=== PATIENT | male | born 1950 | race Caucasian/White ===

== ENCOUNTER 2018-03-10 10:49 | Observation (INO) ==
[2018-03-10 11:44] LABS: Baso # (Auto) 0.1 th/mm3 (0.0-0.2); Baso % (Auto) 1.1 % (0.0-2.0); Eos # (Auto) 0.1 th/mm3 (0.0-0.4); Eos % (Auto) 1.6 % (0.0-4.0); Hematocrit 42.8 % (39.0-51.0); Hemoglobin 14.8 gm/dL (13.0-17.0); Lymph # (Auto) 1.5 th/mm3 (1.0-4.8); Lymph % (Auto) 21.7 % (9.0-44.0); Mean Corpuscular HGB Conc 34.6 % (32.0-36.0); Mean Corpuscular Hemoglobin 29.9 pg (27.0-34.0); Mean Corpuscular Volume 86.5 fL (80.0-100.0); Mean Platelet Volume 7.8 fL (7.0-11.0); Mono # (Auto) 0.5 th/mm3 (0.0-0.9); Mono % (Auto) 7.2 % (0.0-8.0); Neut # (Auto) 4.7 th/mm3 (1.8-7.7); Neut % (Auto) 68.4 % (16.0-70.0); Platelet Count 278 th/mm3 (150-450); Red Blood Count 4.95 mil/mm3 (4.50-5.90); Red Cell Distribution Width 13.1 % (11.6-17.2); White Blood Count 6.8 th/mm3 (4.0-11.0)
--- NOTE | 2018-03-10 11:59 | ED ---
HPI General Chief complaint: Psychiatric Symptoms Stated complaint: Psych eval/EWPD Time Seen by Provider: 03/10/18 13:30 Limitations: altered mental status History of Present Illness HPI narrative: Patient is Gabriele Jarrett date of 1950 registered as eTsfaye Joaquin as he could not be properly identified. Presents emergency department under [employer] act, according the [employer] act "Mr. Ventura is suffered from dementia for approximately 10 years and cannot care for himself. Ms. Mcdermott has had trouble keeping Mr. Jarrett in proper care due to Mr. Davies and continually running away from home. Due to this Mr. Ventura is at risk of injury or worse without proper care."Attempted to get history from this patient is very difficult and near impossible as he has inappropriate answers to questions. For example if you ask him what year it is he states no thank you. Related Data Home Medications Medication Instructions Recorded Confirmed aspirin [Aspir-81] 81 mg PO DAILY 03/10/18 03/10/18 donepezil 10 mg PO DAILY 03/10/18 03/10/18 ziprasidone HCl 20 mg PO BID 03/10/18 03/10/18 Allergies Allergy/AdvReac Type Severity Reaction Status Date / Time No Known Allergies Allergy Unverified 03/10/18 11:17 Review of Systems ROS Unobtainable ROS Unobtainable: unobtainable due to mental status PMFSH Social History Social History Recent Travel in [facility] within the Last 8 Weeks: No Recent Out of Country Travel within the Last 8 Weeks: No Exam Narrative Exam Narrative: GENERAL: Well-developed well-nourished disheveled male in no obvious distress. Appears nontoxic. Pleasantly confused peer SKIN: Focused skin assessment warm/dry. No obvious evidence of trauma on his person. HEAD: Atraumatic. Normocephalic. EYES: Pupils equal and round. No scleral icterus. No injection or drainage. ENT: No nasal bleeding or discharge. Mucous membranes pink and moist. NECK: Trachea midline. No JVD. CARDIOVASCULAR: Regular rate and rhythm. No murmur appreciated. RESPIRATORY: No accessory muscle use. Clear to auscultation. Breath sounds equal bilaterally. GASTROINTESTINAL: Abdomen soft, non-tender, nondistended. Hepatic and splenic margins not palpable. MUSCULOSKELETAL: No obvious deformities. No clubbing. No cyanosis. No edema. NEUROLOGICAL: Alert and awake and oriented to self only. He follows commands in all 4 extremities, no obvious cranial nerve deficits. PSYCHIATRIC: Content affect, otherwise unable to assess him psychiatrically. Course Initial Documented Vital Signs Temperature 98.0 F 03/10/18 11:07 Pulse Rate 82 03/10/18 11:07 Blood Pressure 162/89 H 03/10/18 11:07 Pulse Oximetry 100 03/10/18 11:07 Last Documented Vital Signs Temperature 98.0 F 03/10/18 11:07 Pulse Rate 82 03/10/18 11:07 Blood Pressure 162/89 H 03/10/18 11:07 Pulse Oximetry 100 03/10/18 11:07 Medical Decision Making MDM Narrative Medical decision making narrative: Involving case management early in this patient, his has been contacted and she is having trouble controlling the patient's behaviors at home, she also apparently has been trying to place the patient into jail facility out of [place]. Case management informs that likely nothing will happen until Monday, awaiting UA patient discussed with Dasia Chery RN for psychiatry, will be screened seen by ACCREDITED LEGAL SECRETARY, will continue to follow the patient. 1620 I reevaluated the patient is Huerta acted been lifted, per our certified medical transcriptionist patient will be held in the emergency department for at least 24 hours before being a social admit, that he has no medical admission diagnosis at this time. Have ordered his medications and a diet for him. We will discussed with the oncoming provider at 1700 shift change.. Medical Screen Exam Complete: Yes Emergency Medical Condition: Yes Lab Data Result diagrams: 03/10/18 11:13 03/10/18 11:13 Lab Results 03/10/18 03/10/18 Range/Units 11:13 11:13 WBC 6.8 (4.0-11.0) th/mm3 RBC 4.95 (4.50-5.90) mil/mm3 Hgb 14.8 (13.0-17.0) gm/dL Hct 42.8 (39.0-51.0) % MCV 86.5 (80.0-100.0) fL MCH 29.9 (27.0-34.0) pg MCHC 34.6 (32.0-36.0) % RDW 13.1 (11.6-17.2) % Plt Count 278 (150-450) th/mm3 MPV 7.8 (7.0-11.0) fL Neut % (Auto) 68.4 (16.0-70.0) % Lymph % (Auto) 21.7 (9.0-44.0) % [place] % (Auto) 7.2 (0.0-8.0) % Eos % (Auto) 1.6 (0.0-4.0) % Baso % (Auto) 1.1 (0.0-2.0) % Neut # (Auto) 4.7 (1.8-7.7) th/mm3 Lymph # (Auto) 1.5 (1.0-4.8) th/mm3 [place] # (Auto) 0.5 (0.0-0.9) th/mm3 Eos # (Auto) 0.1 (0.0-0.4) th/mm3 Baso # (Auto) 0.1 (0.0-0.2) th/mm3 WBC Differential . Differential Comment Auto diff final Sodium 139 (136-145) meq/L Potassium 3.7 (3.5-5.1) meq/L Chloride 105 (98-107) meq/L Carbon Dioxide 29.1 (21.0-32.0) meq/L Anion Gap 5 (5-15) meq/L BUN 10 (7-18) mg/dL Creatinine 1.18 (0.60-1.30) mg/dL Estimated GFR 53 L (>89) mL/min Random Glucose 95 (74-106) mg/dL Calcium 8.7 (8.5-10.1) mg/dL Total Bilirubin 1.0 (0.2-1.0) mg/dL AST 16 (15-37) U/L ALT 23 (12-78) U/L Alkaline Phosphatase 72 (45-117) U/L Total Protein 7.6 (6.4-8.2) g/dL Albumin 3.9 (3.4-5.0) g/dL TSH 1.180 (0.358-3.740) uIU/mL Acetaminophen Less than 2.0 L (10.0-30.0) mcg/mL Serum Alcohol Less than 3 (0-5) mg/dL Discharge Plan Discharge Disposition Patient Disposition: 30 Still Patient Discharge Condition Condition: Stable Discharge Details Diagnosis: Dementia with behavioral problem Physicians Team ED Provider: Pritesh Prajapati Primary Care Provider: UNKNOWN, Rxs /Orders / Referrals /Forms Prescriptions: No Action donepezil 10 mg Tablet 10 mg PO DAILY RF: 0 aspirin [Aspir-81] 81 mg Tablet,Delayed Release (Dr/Ec) 81 mg PO DAILY RF: 0 ziprasidone HCl 20 mg Capsule 20 mg PO BID RF: 0 Discharge Interventions Interventions: Discharge Planning - Case Management Last Done: 03/10/18 12:14 Status ED Status: Medically Cleared
[2018-03-10 12:00] LABS: Anion Gap 5 meq/L (5-15)
[2018-03-10 12:30] LABS: Alanine Aminotransferase 23 U/L (12-78); Albumin 3.9 g/dL (3.4-5.0); Alkaline Phosphatase 72 U/L (45-117); Aspartate Aminotransferase 16 U/L (15-37); Blood Urea Nitrogen 10 mg/dL (7-18); Calcium 8.7 mg/dL (8.5-10.1); Carbon Dioxide 29.1 meq/L (21.0-32.0); Chloride 105 meq/L (98-107); Glomerular Filtration Rate 53 mL/min (>89); Glucose,Random 95 mg/dL (74-106); Potassium 3.7 meq/L (3.5-5.1); Sodium 139 meq/L (136-145); Total Protein 7.6 g/dL (6.4-8.2)
--- NOTE | 2018-03-10 15:52 | ED ---
HPI - Psych - General Source: patient, family Mode of arrival: other Limitations: language barrier, other - History of Present Illness MD complaint: other Onset (ago): month(s) Duration: constant History of same: Yes Relieving factors: none Exacerbating factors: none Context: other Associated psychiatric symptoms: none, visual hallucinations Associated symptoms: denies other symptoms Treatments prior to arrival: none If self harm: other (Unable to assess) - General Chief Complaint: Psychiatric Symptoms Stated Complaint: Psych eval/EWPD Time Seen by Provider: 03/10/18 13:30 - History of Present Illness HPI Narrative: History of Present Illness HPI narrative: Patient is Gabriele Jarrett date of 1950 registered as Tesfaye Joaquin as he could not be properly identified. Presents emergency department under [employer] act. The report states "Mr. Ventura is suffered from dementia for approximately 10 years and cannot care for himself. Ms. Mcdermott has had trouble keeping Mr. Jarrett in proper care due to Mr. Davies continually running away from home. Due to this Mr. Ventura is at risk of injury or worse without proper care. Patient is seen in Main ED. Dr. Prajapati has asked for us to evaluate him to make a determination on the Huerta act. He has been unable to obtain any clinical information from the patient due to his degree of cognitive impairment. Patient is sitting in hospital stretcher. When he is approached he is able to tell me his name is Gabriele but he is not able to tell me what his last name. He smiles and laughs frequently and does not appear to be in distress. When asked what his last name he states "that is alright". Patient is unable to tell me what kind of place this is. He exhibits difficulty with word finding, difficulty with word comprehension, somatic paraphasia, and decreased verbal fluency. He does not appear to be responding to internal stimuli at this time. Therefore the psychiatric review of system and other clinical information is on unavailable. Telephone call to his spouse Ratna at [phone]. She informs me that he was Dx with Alzheimer in 2007. Being followed by [place] system and sees Dr. Bang as well as Dr. Aranda. She has been filling out paperwork for placement in [place]. He has episodes of swearing, yelling and screaming obscenities in front of children, hits himself in the head, believes that people are trying to hurt him. His medications have recently been changed and was started on Geodon 20 mg in an attempt to control behaviors associated with his dementia including hallucinations.. She states she is unable to care for him due to him continuing to run away from the home. (Radha Zhao) - Related Data Home Medications Medication Instructions Recorded Confirmed aspirin [Aspir-81] 81 mg PO DAILY 03/10/18 03/10/18 donepezil 10 mg PO DAILY 03/10/18 03/10/18 ziprasidone HCl 20 mg PO BID 03/10/18 03/10/18 Allergies Allergy/AdvReac Type Severity Reaction Status Date / Time No Known Allergies Allergy Unverified 03/10/18 11:17 PMF - History History Provided By: Patient - Travel History Recent Travel in the [facility] Within the Last 8 Weeks: No Recent Travel Out of the Country Within the Last 8 Weeks: No Psychiatric History - Psychiatric History Patient unable to provide but (Radha Zhao) Physical Exam - General Limitations: altered mental status Mental Status Examination Consciousness: Alert Orientation: Person Motor Activity: Other (Remained in bed) Speech: Other (Significant for somatic paraphasia, decreased verbal fluency, difficult goal with word finding) Language: Other Fund of Knowledge: Poor Attention and Concentration: Inadequate Memory: Impaired Mood: Appropriate Affect: Other (Smiles frequently) Thought Process & Associations: Disorganized Thought Content: Other (Decrease) Hallucination Type: None (Does not appear to be responding to internal stimuli at this time) Delusion Type: None Suicidal Ideation: No Suicidal Plan: No Suicidal Intention: No Homicidal Plan: No Homicidal Intention: No Insight: Poor Judgment: Poor Initial Documented Vital Signs Temperature 98.0 F 03/10/18 11:07 Pulse Rate 82 03/10/18 11:07 Blood Pressure 162/89 H 03/10/18 11:07 Pulse Oximetry 100 03/10/18 11:07 Last Documented Vital Signs Temperature 98.0 F 03/10/18 11:07 Pulse Rate 82 03/10/18 11:07 Blood Pressure 162/89 H 03/10/18 11:07 Pulse Oximetry 100 03/10/18 11:07 MDM - Psych - Diagnosis (1) Major neurocognitive disorder due to Alzheimer's disease, possible Status: Acute - Lab Data Result diagrams: 03/10/18 11:13 03/10/18 11:13 - [facility] Narrative Medical decision making narrative: At this patient with a diagnosis of major neurocognitive disorder secondary to Alzheimer's disease who is under a Huerta act due to his inability to care for him at the home. She reports that he has been escaping from the home, has been using profane language in front of small children, has been hitting himself , has been more defiant with her. This patient does not meet criteria to remain under the Huerta act as dementia is not a criteria under the Huerta act law. The family has begun to make arrangements for him to be placed at a facility but the does not feel safe if she were to bring him home tonight. I have conveyed to her that she does not meet criteria for inpatient psychiatric treatment. I have discussed this case with Dr. Prajapati who will be contacting hospitalist for possible admission to observation. The Huerta act is lifted at this time. (Radha Zhao) - Lab Data Lab Results 03/10/18 03/10/18 Range/Units 11:13 11:13 WBC 6.8 (4.0-11.0) th/mm3 RBC 4.95 (4.50-5.90) mil/mm3 Hgb 14.8 (13.0-17.0) gm/dL Hct 42.8 (39.0-51.0) % MCV 86.5 (80.0-100.0) fL MCH 29.9 (27.0-34.0) pg MCHC 34.6 (32.0-36.0) % RDW 13.1 (11.6-17.2) % Plt Count 278 (150-450) th/mm3 MPV 7.8 (7.0-11.0) fL Neut % (Auto) 68.4 (16.0-70.0) % Lymph % (Auto) 21.7 (9.0-44.0) % [place] % (Auto) 7.2 (0.0-8.0) % Eos % (Auto) 1.6 (0.0-4.0) % Baso % (Auto) 1.1 (0.0-2.0) % Neut # (Auto) 4.7 (1.8-7.7) th/mm3 Lymph # (Auto) 1.5 (1.0-4.8) th/mm3 [place] # (Auto) 0.5 (0.0-0.9) th/mm3 Eos # (Auto) 0.1 (0.0-0.4) th/mm3 Baso # (Auto) 0.1 (0.0-0.2) th/mm3 WBC Differential . Differential Comment Auto diff final Sodium 139 (136-145) meq/L Potassium 3.7 (3.5-5.1) meq/L Chloride 105 (98-107) meq/L Carbon Dioxide 29.1 (21.0-32.0) meq/L Anion Gap 5 (5-15) meq/L BUN 10 (7-18) mg/dL Creatinine 1.18 (0.60-1.30) mg/dL Estimated GFR 53 L (>89) mL/min Random Glucose 95 (74-106) mg/dL Calcium 8.7 (8.5-10.1) mg/dL Total Bilirubin 1.0 (0.2-1.0) mg/dL AST 16 (15-37) U/L ALT 23 (12-78) U/L Alkaline Phosphatase 72 (45-117) U/L Total Protein 7.6 (6.4-8.2) g/dL Albumin 3.9 (3.4-5.0) g/dL TSH 1.180 (0.358-3.740) uIU/mL Acetaminophen Less than 2.0 L (10.0-30.0) mcg/mL Serum Alcohol Less than 3 (0-5) mg/dL
--- NOTE | 2018-03-11 10:03 | P.CON ---
History of Present Illness Service: Hospitalists Consult date: 03/11/18 Reason for Consult: placement Primary Care Provider: UNKNOWN Chief Complaint: dementia, unsafe discharge History of Present Illness: 67-year-old male Gabriele Mcdermott 54, brought to the emergency department under Huerta act which stated "Mr. Mcdermott has suffered from dementia for approximately 10 years and cannot care for himself. Mrs. Mcdermott has had trouble keeping Mr. Mcdermott in proper care due to Mr. Mcdermott continually running away from home. Due to this Mr. Mcdermott is at risk of injury or worse without proper care." The patient is seen ambulating his room in the ER. He has difficulty even telling me his name, and does not oriented to place or time. He does not answer questions appropriately. Difficulty obtaining any reliable history, therefore history supplemented from EMR. From report, the patient was brought in by his who has been working on obtaining secure placement for the patient as she can no longer care for him. Case management has been involved. Review of Systems unobtainable due to mental condition, unobtainable due to mental status PMFSH - History History Provided By: Patient - Medical / Surgical Hx Neg / Unobtainable Medical Problems Denied: Unable to Obtain Surgical History: Unable to Obtain - Medical History Medical History: Medical History (Last Updated 03/11/18 @ 13:32 by Rosita Kim) Dementia - Social History I have reviewed the patient's Social History: Yes - Travel History Recent Travel in the [place] Within the Last 8 Weeks: No Recent Travel Out of the Country Within the Last 8 Weeks: No Medications and Allergies Active Medications: Active Medications Aspirin (Aspirin Chew) 81 mg PO DAILY [facility] Last Admin: 03/11/18 08:26 Dose: 81 mg Donepezil HCl (Aricept) 10 mg PO DAILY [facility] Last Admin: 03/11/18 08:26 Dose: 10 mg Ziprasidone (Geodon) 20 mg PO BID [facility] Last Admin: 03/11/18 08:27 Dose: 20 mg Allergies Allergy/AdvReac Type Severity Reaction Status Date / Time No Known Allergies Allergy Unverified 03/10/18 11:17 Home Medications Medication Instructions Recorded Confirmed Type aspirin [Aspir-81] 81 mg PO DAILY 03/10/18 03/10/18 History donepezil 10 mg PO DAILY 03/10/18 03/10/18 History ziprasidone HCl 20 mg PO BID 03/10/18 03/10/18 History Physical Exam Vital signs: Vital Signs 03/10/18 11:07 03/10/18 19:00 03/11/18 04:27 Temperature 98.0 F Pulse Rate 82 75 Respiratory Rate 16 14 Blood Pressure 162/89 H 176/86 H Pulse Oximetry 100 96 Intake & Output 03/10/18 03/11/18 03/11/18 18:59 06:59 18:59 Weight 77.111 kg 65.2 kg Other: Weight On Admission 65.2 kg Narrative: GENERAL: Tall thin pleasantly confused elderly male patient in [facility], ambulating his room. SKIN: Warm and dry. No rash. HEENT: Normocephalic. Atraumatic. Pupils equal and round. Mucous membranes pink and moist. NECK: Supple. Trachea midline. CARDIOVASCULAR: Regular rate and rhythm. No murmur appreciated. RESPIRATORY: No accessory muscle use. Clear to auscultation. Breath sounds equal bilaterally. GASTROINTESTINAL: Abdomen soft, non-tender, nondistended. Normoactive bowel sounds x4. MUSCULOSKELETAL: No obvious deformities. Extremities without clubbing, cyanosis , or edema. NEUROLOGICAL: Awake and alert. No obvious cranial nerve deficits. Motor grossly within normal limits. Moving all extremities spontaneously. Normal speech. PSYCHIATRIC: Pleasantly confused; insight and judgment poor. Assessment and Plan - Plan 67-year-old male Gabriele Mcdermott [birth year], brought to the emergency department under Huerta act for inability to care for self with advanced dementia. He is bedded outpatient, being kept in hospital for social reasons only. Dementia, inability to care for self: Patient is a social admit for placement. Patient's can no longer care for the patient. -Initially presented under Huerta act, no lifted by psych, continued on patient's Geodon 20 mg bid -Continue patient's Aricept -Consult case management to assist with discharge planning Hypertension: BP elevated while in the ER, not on meds -continue to monitor BP, add antihypertensives as needed DVT prophylaxis: Patient is ambulatory Discharge Planning: Discharge pending safe discharge arrangements by case management and patient's .
--- NOTE | 2018-03-13 16:17 | P.PN ---
Subjective Interval history: Patient seen as bedded outpatient. Severely demented. Does not appear to be in distress. Nursing and sitter report no adverse events. Waiting for placement. Physical Exam Vital signs: Vital Signs 03/12/18 20:00 03/13/18 07:17 03/13/18 11:59 Temperature 98.4 F 98.6 F Pulse Rate 95 H 92 H 80 Respiratory Rate 19 18 20 Blood Pressure 123/78 131/91 H 107/80 Pulse Oximetry 83 L 99 99 03/13/18 16:08 Temperature 98.5 F Pulse Rate 84 Respiratory Rate 20 Blood Pressure 120/82 Pulse Oximetry 90 L Intake & Output 03/12/18 03/13/18 03/13/18 18:59 06:59 18:59 Other: # Voids 1 Results - Labs CBC & Chem 7: 03/10/18 11:13 03/10/18 11:13
[2018-03-14] MEDS ORDERED: Bisacodyl 10 MG Supp RECTAL PRN (13:22)
[2018-03-14] MEDS ORDERED: LORazepam 0.5 MG Tablet PO PRN (13:24)
[2018-03-14 14:39] LABS: Baso # (Auto) 0.1 th/mm3 (0.0-0.2); Baso % (Auto) 0.6 % (0.0-2.0); Eos # (Auto) 0.1 th/mm3 (0.0-0.4); Eos % (Auto) 0.6 % (0.0-4.0); Hematocrit 44.7 % (39.0-51.0); Hemoglobin 15.3 gm/dL (13.0-17.0); Lymph # (Auto) 1.6 th/mm3 (1.0-4.8); Lymph % (Auto) 15.9 % (9.0-44.0); Mean Corpuscular HGB Conc 34.3 % (32.0-36.0); Mean Corpuscular Hemoglobin 29.9 pg (27.0-34.0); Mean Corpuscular Volume 87.2 fL (80.0-100.0); Mean Platelet Volume 7.5 fL (7.0-11.0); Mono # (Auto) 0.8 th/mm3 (0.0-0.9); Mono % (Auto) 8.1 % (0.0-8.0); Neut # (Auto) 7.7 th/mm3 (1.8-7.7); Neut % (Auto) 74.8 % (16.0-70.0); Platelet Count 263 th/mm3 (150-450); Red Blood Count 5.12 mil/mm3 (4.50-5.90); Red Cell Distribution Width 13.6 % (11.6-17.2); White Blood Count 10.3 th/mm3 (4.0-11.0)
[2018-03-14 14:54] LABS: Alanine Aminotransferase 19 U/L (12-78); Albumin 3.7 g/dL (3.4-5.0); Anion Gap 8 meq/L (5-15); Aspartate Aminotransferase 20 U/L (15-37); Blood Urea Nitrogen 17 mg/dL (7-18); Carbon Dioxide 28.8 meq/L (21.0-32.0); Chloride 105 meq/L (98-107); Glomerular Filtration Rate 72 mL/min (>89); Glucose,Random 92 mg/dL (74-106); Potassium 4.3 meq/L (3.5-5.1); Sodium 142 meq/L (136-145)
[2018-03-14 14:57] LABS: Alkaline Phosphatase 69 U/L (45-117); Total Protein 7.3 g/dL (6.4-8.2)
[2018-03-14] MEDS: QUEtiapine 100 MG Tablet PO SCH (15:44)
--- NOTE | 2018-03-14 15:50 | P.PN ---
Subjective Interval history: Patient is seen pacing around room. He has severe chronic dementia/Alzheimer's however he appears increasingly agitated and more confused than his apparent baseline. Nursing reports that he has been very aggressive overnight. Physical Exam Vital signs: Vital Signs 03/13/18 16:08 03/13/18 20:00 03/14/18 00:00 Temperature 98.5 F 97.6 F 97.6 F Pulse Rate 84 70 82 Respiratory Rate 20 18 16 Blood Pressure 120/82 127/93 H 118/76 Pulse Oximetry 90 L 97 92 L 03/14/18 07:56 Temperature 97.8 F Pulse Rate 112 H Respiratory Rate 18 Blood Pressure 162/97 H Pulse Oximetry Narrative: GENERAL: Well-nourished, well-developed adult male in no obvious distress. SKIN: Warm and dry. HEAD: Atraumatic. Normocephalic. CARDIOVASCULAR: Regular rate and rhythm. RESPIRATORY: No accessory muscle use. Clear to auscultation. Breath sounds equal bilaterally. GASTROINTESTINAL: Abdomen soft, non-tender, non-distended. Positive bowel sounds. MUSCULOSKELETAL: Extremities without clubbing, cyanosis, or edema. No obvious deformities. NEUROLOGICAL: Awake and alert. No obvious cranial nerve deficits. Motor grossly within normal limits. Normal speech. PSYCHIATRIC: Severe dementia. Unreliable historian Results - Labs CBC & Chem 7: 03/14/18 14:10 03/14/18 14:10 Laboratory Results - last 24 hr 03/14/18 03/14/18 14:10 14:10 WBC 10.3 RBC 5.12 Hgb 15.3 Hct 44.7 MCV 87.2 MCH 29.9 MCHC 34.3 RDW 13.6 Plt Count 263 MPV 7.5 Neut % (Auto) 74.8 H Lymph % (Auto) 15.9 [place] % (Auto) 8.1 H Eos % (Auto) 0.6 Baso % (Auto) 0.6 Neut # (Auto) 7.7 Lymph # (Auto) 1.6 [place] # (Auto) 0.8 Eos # (Auto) 0.1 Baso # (Auto) 0.1 WBC Differential . Differential Comment Auto diff final Sodium 142 Potassium 4.3 Chloride 105 Carbon Dioxide 28.8 Anion Gap 8 BUN 17 Creatinine 1.03 Estimated GFR 72 L Random Glucose 92 Calcium 9.0 Total Bilirubin 1.2 H AST 20 ALT 19 Alkaline Phosphatase 69 Total Protein 7.3 Albumin 3.7 Assessment and Plan - Plan Patient is a 67-year-old male with severe Alzheimer's who was initially Huerta acted due to his 's inability to care for him in the home. Initially admitted as bedded outpatient however he became increasingly aggressive and agitated so will admit to observation. Alzheimer's/dementia -Change Geodon to Haldol. Continue other medications Increased aggression/delirium -Evaluate for UTI or lab abnormality -Consider sundowners-add Seroquel Discharge planning: Will need SNF
[2018-03-14 17:02] LABS: Bilirubin,Urine Negative (Negative); Clarity,Urine Hazy (Clear); Color,Urine Amber (Yellw/Straw); Glucose,Urine (UA) Negative (Negative); Hyaline Casts,Urine 4 /lpf (0-3); Leukocyte Esterase,Urine Negative (Negative); Mucus,Urine Many /lpf (Occasional); Nitrite,Urine Negative (Negative); Specific Gravity,Urine 1.027 (1.002-1.035); Squamous Epithelial Cell,Urine <1 /hpf (0-5); Urobilinogen,Urine 4 or Greater mg/dL (Less than 2)
[2018-03-14] MEDS ORDERED: LORazepam 1 MG Tablet PO ONE (17:33)
[2018-03-14] MEDS ORDERED: QUEtiapine 100 MG Tablet PO SCH (21:00)
[2018-03-14] MEDS: Senna/Docusate Sodium 8.6/50 MG Tablet PO SCH (22:55)
[2018-03-15] MEDS ORDERED: Haloperidol 1 MG Tablet PO PRN (07:30)
[2018-03-15] MEDS: QUEtiapine 100 MG Tablet PO SCH (09:42)
[2018-03-15] MEDS: Senna/Docusate Sodium 8.6/50 MG Tablet PO SCH ×2 (09:43→20:45)
--- NOTE | 2018-03-15 13:20 | P.PN ---
Subjective Interval history: Patient appears improved with changes to medications. Lab work on concerning. Nursing reports that patient was calm overnight with no aggressive behaviors. Physical Exam Vital signs: Vital Signs 03/14/18 15:40 03/14/18 19:27 03/14/18 20:00 Temperature 97.6 F 97.7 F Pulse Rate 117 H 100 H Respiratory Rate 16 15 19 Blood Pressure 107/83 114/79 Pulse Oximetry 94 L 100 03/14/18 23:38 03/15/18 04:00 03/15/18 08:00 Temperature 97.8 F 97.6 F Pulse Rate 80 68 Respiratory Rate 18 20 20 Blood Pressure 138/75 133/81 Pulse Oximetry 100 100 Narrative: GENERAL: Well-nourished, well-developed adult male in no obvious distress. SKIN: Warm and dry. HEAD: Atraumatic. Normocephalic. CARDIOVASCULAR: Regular rate and rhythm. RESPIRATORY: No accessory muscle use. Clear to auscultation. Breath sounds equal bilaterally. GASTROINTESTINAL: Abdomen soft, non-tender, non-distended. Positive bowel sounds. MUSCULOSKELETAL: Extremities without clubbing, cyanosis, or edema. No obvious deformities. NEUROLOGICAL: Awake and alert. No obvious cranial nerve deficits. Motor grossly within normal limits. Normal speech. PSYCHIATRIC: Severe dementia. Unreliable historian Results - Labs CBC & Chem 7: 03/14/18 14:10 03/14/18 14:10 Laboratory Results - last 24 hr 03/14/18 03/14/18 03/14/18 14:10 14:10 16:40 WBC 10.3 RBC 5.12 Hgb 15.3 Hct 44.7 MCV 87.2 MCH 29.9 MCHC 34.3 RDW 13.6 Plt Count 263 MPV 7.5 Neut % (Auto) 74.8 H Lymph % (Auto) 15.9 [place] % (Auto) 8.1 H Eos % (Auto) 0.6 Baso % (Auto) 0.6 Neut # (Auto) 7.7 Lymph # (Auto) 1.6 [place] # (Auto) 0.8 Eos # (Auto) 0.1 Baso # (Auto) 0.1 WBC Differential . Differential Comment Auto diff final Sodium 142 Potassium 4.3 Chloride 105 Carbon Dioxide 28.8 Anion Gap 8 BUN 17 Creatinine 1.03 Estimated GFR 72 L Random Glucose 92 Calcium 9.0 Total Bilirubin 1.2 H AST 20 ALT 19 Alkaline Phosphatase 69 Total Protein 7.3 Albumin 3.7 Urine Color [place] Urine Clarity Hazy H Urine pH 5.0 Ur Specific [place] 1.027 Urine Protein 30 H Urine Glucose (UA) Negative Urine Ketones 20 Urine Occult Blood Small H Urine Nitrate Negative Urine Bilirubin Negative Urine Urobilinogen 4 or greater Ur Leukocyte Esterase Negative Urine RBC 1 Urine WBC 3 Ur Squamous Epith Cells <1 Hyaline Casts 4 Urine Mucus Many H Micro UA Comment Culture not ind Ur Microscopic Review Not Reportable Urine Culture Comments Culture not ind Assessment and Plan - Plan Patient is a 67-year-old male with severe Alzheimer's who was initially Huerta acted due to his 's inability to care for him in the home. Initially admitted as bedded outpatient however he became increasingly aggressive and agitated so will admit to observation. Alzheimer's/dementia -Change Geodon to Haldol. Improved -Continue other medications Increased aggression/delirium -Labs and UA normal -Consider sundowners-add Seroquel Discharge planning: Will need SNF
[2018-03-15] MEDS ORDERED: QUEtiapine 25 MG Tablet PO ONE (15:00)
[2018-03-15] MEDS ORDERED: Haloperidol 5 MG Tablet PO PRN (15:00)
[2018-03-16] MEDS: Senna/Docusate Sodium 8.6/50 MG Tablet PO SCH ×2 (09:24→20:06)
[2018-03-16] MEDS: QUEtiapine 25 MG Tablet PO SCH ×2 (09:26→20:06)
--- NOTE | 2018-03-16 18:20 | P.PN ---
Subjective Interval history: Patient is seen standing quietly in room. Appears to be talking to glove boxes. Nurses report no adverse events overnight. Physical Exam Vital signs: Vital Signs 03/15/18 19:48 03/16/18 00:00 03/16/18 04:00 Temperature 98.0 F 97.8 F 98.3 F Pulse Rate 90 87 77 Respiratory Rate 16 16 16 Blood Pressure 138/80 128/76 107/71 Pulse Oximetry 100 99 96 03/16/18 07:07 03/16/18 12:00 03/16/18 16:00 Temperature 98.2 F 97.8 F 98.7 F Pulse Rate 82 97 H 90 Respiratory Rate 16 18 16 Blood Pressure 123/89 134/96 H 124/87 Pulse Oximetry 100 99 99 Narrative: GENERAL: Well-nourished, well-developed adult male in no obvious distress. SKIN: Warm and dry. HEAD: Atraumatic. Normocephalic. CARDIOVASCULAR: Regular rate and rhythm. RESPIRATORY: No accessory muscle use. Clear to auscultation. Breath sounds equal bilaterally. GASTROINTESTINAL: Abdomen soft, non-tender, non-distended. Positive bowel sounds. MUSCULOSKELETAL: Extremities without clubbing, cyanosis, or edema. No obvious deformities. NEUROLOGICAL: Awake and alert. No obvious cranial nerve deficits. Motor grossly within normal limits. Normal speech. PSYCHIATRIC: Severe dementia. Unreliable historian Results - Labs CBC & Chem 7: 03/14/18 14:10 03/14/18 14:10 Assessment and Plan - Plan Patient is a 67-year-old male with severe Alzheimer's who was initially Huerta acted due to his 's inability to care for him in the home. Initially admitted as bedded outpatient however he became increasingly aggressive and agitated so will admit to observation. Alzheimer's/dementia -Change Geodon to Haldol. Improved -Continue other medications Increased aggression/delirium -Labs and UA normal -Consider sundowners-add Seroquel Discharge planning: Will need SNF. to arrange pickup of patient tonight or tomorrow. If she does not, DCF will be called for abandonment.
[2018-03-17 08:35] VITALS: RESP 16
--- NOTE | 2018-03-17 09:24 | P.PN ---
Subjective Interval history: Patient is sitting quietly in room. Nursing reports no adverse events overnight. Physical Exam Vital signs: Vital Signs 03/16/18 12:00 03/16/18 16:00 03/16/18 19:41 Temperature 97.8 F 98.7 F 97.7 F Pulse Rate 97 H 90 92 H Respiratory Rate 18 16 18 Blood Pressure 134/96 H 124/87 118/69 Pulse Oximetry 99 99 100 03/17/18 00:00 03/17/18 04:00 03/17/18 08:00 Temperature 97.7 F 97.7 F 98.7 F Pulse Rate 69 75 68 Respiratory Rate 18 19 16 Blood Pressure 136/85 136/77 128/83 Pulse Oximetry 98 100 94 L Intake & Output 03/16/18 03/17/18 03/17/18 18:59 06:59 18:59 Other: Date of Last Bowel Movement 03/15/18 Narrative: GENERAL: Well-nourished, well-developed adult male in no obvious distress. SKIN: Warm and dry. HEAD: Atraumatic. Normocephalic. CARDIOVASCULAR: Regular rate and rhythm. RESPIRATORY: No accessory muscle use. Clear to auscultation. Breath sounds equal bilaterally. GASTROINTESTINAL: Abdomen soft, non-tender, non-distended. Positive bowel sounds. MUSCULOSKELETAL: Extremities without clubbing, cyanosis, or edema. No obvious deformities. NEUROLOGICAL: Awake and alert. No obvious cranial nerve deficits. Motor grossly within normal limits. Normal speech. PSYCHIATRIC: Severe dementia. Unreliable historian Results - Labs CBC & Chem 7: 03/14/18 14:10 03/14/18 14:10 Assessment and Plan - Plan Patient is a 67-year-old male with severe Alzheimer's who was initially Huerta acted due to his 's inability to care for him in the home. Initially admitted as bedded outpatient however he became increasingly aggressive and agitated so will admit to observation. Alzheimer's/dementia -Change Geodon to Haldol. Improved. Not needing Haldol per nursing. -Continue other medications Increased aggression/delirium -Labs and UA normal -add Seroquel -improved. Discharge planning: Will need SNF. to arrange pickup of patient tonight or tomorrow. If she does not, DCF will be called for abandonment.
[2018-03-17] MEDS: QUEtiapine 25 MG Tablet PO SCH (09:35)
[2018-03-17] MEDS: Senna/Docusate Sodium 8.6/50 MG Tablet PO SCH (09:35)
--- NOTE | 2018-03-17 09:39 | P.DS ---
Date of admission: 03/11/18 09:35 Primary care physician: UNKNOWN Attending physician on discharge: Michael Panda Anticipated date of discharge: 03/17/18 Brief History from admission: Patient is a 67-year-old male with a history of significant dementia/ Alzheimer's. He was brought in by his who is reporting that she cannot manage him at home due to behavioral issues. Initially admitted as a bedded outpatient. Was admitted on labs later due to some increasing agitation and concern for delirium. Delirium workup was negative. Added Seroquel which improved agitation. DS: Medications - Discharge Medications Prescriptions: quetiapine 50 mg PO BID #60 tab DS: Summary Hospital Course: Patient is a 67-year-old male with severe Alzheimer's who was initially Huerta acted due to his 's inability to care for him in the home. Initially admitted as bedded outpatient however he became increasingly aggressive and agitated so was admitted to observation. Laboratory and urinalysis indicate cause for increasing agitation. Medication adjustment included changing Geodon to Haldol and adding Seroquel. Patient eventually not needing Haldol and doing well on Seroquel only. Patient now stabilized and no longer indicated for either observation or inpatient services. Case management worked extensively to [facility] . Found that patient is not eligible for many services due to significant monthly income. This was discussed repeatedly with the however she was very resistant to taking custody of her and finding appropriate placement for him. DCF was notified do to concern for abandonment. - Time Spent with Patient Total time spent providing and/or coordinating discharge services: Less than 30 minutes Exam Vital signs: Vital Signs 03/16/18 12:00 03/16/18 16:00 03/16/18 19:41 Temperature 97.8 F 98.7 F 97.7 F Pulse Rate 97 H 90 92 H Respiratory Rate 18 16 18 Blood Pressure 134/96 H 124/87 118/69 Pulse Oximetry 99 99 100 03/17/18 00:00 03/17/18 04:00 03/17/18 08:00 Temperature 97.7 F 97.7 F 98.7 F Pulse Rate 69 75 68 Respiratory Rate 18 19 16 Blood Pressure 136/85 136/77 128/83 Pulse Oximetry 98 100 94 L Intake & Output 03/16/18 03/17/18 03/17/18 18:59 06:59 18:59 Other: Date of Last Bowel Movement 03/15/18 Narrative: GENERAL: Well-nourished, well-developed adult male in no obvious distress. SKIN: Warm and dry. HEAD: Atraumatic. Normocephalic. CARDIOVASCULAR: Regular rate and rhythm. RESPIRATORY: No accessory muscle use. Clear to auscultation. Breath sounds equal bilaterally. GASTROINTESTINAL: Abdomen soft, non-tender, non-distended. Positive bowel sounds. MUSCULOSKELETAL: Extremities without clubbing, cyanosis, or edema. No obvious deformities. NEUROLOGICAL: Awake and alert. No obvious cranial nerve deficits. Motor grossly within normal limits. Normal speech. PSYCHIATRIC: Severe dementia. Unreliable historian Results Procedures completed during hospitalization: none Discharge Plan - Discharge Disposition Patient Disposition: 01 Discharge Home - Discharge Condition Condition: Stable - Discharge Order Discharge Orders: Discharge Order (Routine); Ordered 03/17/18 Ordered By: Aracely Prather - Physicians Team Primary Care Provider: UNKNOWN, Attending Provider: Michael Panda Other Providers: [facility],[place] ; [facility],Agency ; [facility], Agency
[2018-03-17 12:15] VITALS: BP 132/81; PULSE 74; TEMP 97.9; O2SAT 97
== END 2018-03-17 13:19 | disposition home or self-care (01) ==
LOC: NEPHCDU 10:49 → NEPD 10:49 → EDBD 03-11 09:35 → NEPHCDU 03-11 19:03
PROVIDERS: ADMIT Internal Medicine; ATTEND Internal Medicine

== ENCOUNTER 2018-04-11 13:56 | Inpatient (IN) ==
[2018-04-11 14:52] LABS: Baso # (Auto) 0.1 th/mm3 (0.0-0.2); Baso % (Auto) 0.8 % (0.0-2.0); Eos # (Auto) 0.2 th/mm3 (0.0-0.4); Eos % (Auto) 1.8 % (0.0-4.0); Hematocrit 40.7 % (39.0-51.0); Hemoglobin 14.1 gm/dL (13.0-17.0); Lymph # (Auto) 1.6 th/mm3 (1.0-4.8); Lymph % (Auto) 19.7 % (9.0-44.0); Mean Corpuscular HGB Conc 34.6 % (32.0-36.0); Mean Corpuscular Hemoglobin 29.9 pg (27.0-34.0); Mean Corpuscular Volume 86.3 fL (80.0-100.0); Mean Platelet Volume 7.3 fL (7.0-11.0); Mono # (Auto) 0.6 th/mm3 (0.0-0.9); Mono % (Auto) 6.9 % (0.0-8.0); Neut # (Auto) 5.8 th/mm3 (1.8-7.7); Neut % (Auto) 70.8 % (16.0-70.0); Platelet Count 334 th/mm3 (150-450); Red Blood Count 4.72 mil/mm3 (4.50-5.90); Red Cell Distribution Width 13.7 % (11.6-17.2); White Blood Count 8.2 th/mm3 (4.0-11.0)
[2018-04-11 15:16] LABS: Alkaline Phosphatase 69 U/L (45-117); Total Protein 7.3 g/dL (6.4-8.2)
[2018-04-11 15:18] LABS: Alanine Aminotransferase 20 U/L (12-78); Albumin 3.5 g/dL (3.4-5.0); Anion Gap 6 meq/L (5-15); Aspartate Aminotransferase 19 U/L (15-37); Blood Urea Nitrogen 13 mg/dL (7-18); Calcium 8.4 mg/dL (8.5-10.1); Carbon Dioxide 27.3 meq/L (21.0-32.0); Chloride 109 meq/L (98-107); Glomerular Filtration Rate 72 mL/min (>89); Glucose,Random 88 mg/dL (74-106); Magnesium 2.3 mg/dL (1.5-2.5); Potassium 4.1 meq/L (3.5-5.1); Sodium 142 meq/L (136-145)
--- NOTE | 2018-04-11 16:41 | ED ---
HPI General Chief complaint: Psychiatric Symptoms Stated complaint: Psych eval/VCSO Time Seen by Provider: 04/11/18 14:06 Source: patient Mode of arrival: ambulatory Limitations: other (dementia) History of Present Illness HPI narrative: Patient is a 67 year old male who comes in from his primary doctor's office under a huerta act. Per BA, patient's reports he has been becoming increasingly more violent. He was observed yelling at his and threatening her, per Huerta Act form. Huerta Act also states patient has been wandering at night and trying to go out into traffic. It also reports hallucinations. Patient does not know where he is or why he is here. He has no complaints currently. Related Data Home Medications Medication Instructions Recorded Confirmed aspirin [Aspir-81] 81 mg PO DAILY 03/10/18 04/11/18 donepezil 10 mg PO DAILY 03/10/18 04/11/18 Previous Rx's Medication Instructions Recorded quetiapine 50 mg PO BID #60 tab 03/17/18 Allergies Allergy/AdvReac Type Severity Reaction Status Date / Time No Known Allergies Allergy Verified 04/11/18 14:37 Review of Systems ROS Unobtainable ROS Unobtainable: unobtainable due to mental condition [facility] Medical History Medical History Adjustment disorder (Acute) Tinnitus (Acute) Dementia (Acute) Social History Social History Substance History: Unable to Obtain Smoking Status: Cognitive impairment How Often Do You Have a Drink Containing Alcohol: Unable to Obtain Recent Travel [facility] within the Last 8 Weeks: No Recent Out of Country Travel within the Last 8 Weeks: No Immunization History Tetanus Immunization: Unable to Assess Exam Narrative Exam Narrative: GENERAL: Awake and alert, in no acute distress. SKIN: Focused skin assessment warm/dry. HEAD: Atraumatic. Normocephalic. EYES: Pupils equal and round. No scleral icterus. ENT: Mucous membranes pink and moist. NECK: Trachea midline. No JVD. CARDIOVASCULAR: Regular rate and rhythm. No murmur appreciated. RESPIRATORY: No accessory muscle use. Clear to auscultation. Breath sounds equal bilaterally. GASTROINTESTINAL: Abdomen soft, non-tender, nondistended. MUSCULOSKELETAL: No obvious deformities. No clubbing. No cyanosis. No edema. NEUROLOGICAL: Awake and alert. No obvious cranial nerve deficits. Motor grossly within normal limits. Normal speech. PSYCHIATRIC: Appropriate mood and affect; insight and judgment normal. Medical Decision Making MDM Narrative Medical decision making narrative: Patient is a 67-year-old male who comes in under a Huerta act. Patient has no medical complaints at this time. Labs sent show no acute abnormalities. Patient will be medically cleared for psychiatric evaluation. Medical Screen Exam Complete: Yes Emergency Medical Condition: Yes Differential Diagnosis Differential Diagnosis: Electrolyte abnormality versus psychosis versus dementia Medical Records Medical records reviewed: Yes I reviewed the patient's medical records. Lab Data Lab results reviewed: Yes I reviewed the patient's lab results. Result diagrams: 04/11/18 14:30 04/11/18 14:30 Lab Results 04/11/18 04/11/18 04/11/18 Range/Units 14:30 14:30 14:30 WBC 8.2 (4.0-11.0) th/mm3 RBC 4.72 (4.50-5.90) mil/mm3 Hgb 14.1 (13.0-17.0) gm/dL Hct 40.7 (39.0-51.0) % MCV 86.3 (80.0-100.0) fL MCH 29.9 (27.0-34.0) pg MCHC 34.6 (32.0-36.0) % RDW 13.7 (11.6-17.2) % Plt Count 334 (150-450) th/mm3 MPV 7.3 (7.0-11.0) fL Neut % (Auto) 70.8 H (16.0-70.0) % Lymph % (Auto) 19.7 (9.0-44.0) % [place] % (Auto) 6.9 (0.0-8.0) % Eos % (Auto) 1.8 (0.0-4.0) % Baso % (Auto) 0.8 (0.0-2.0) % Neut # (Auto) 5.8 (1.8-7.7) th/mm3 Lymph # (Auto) 1.6 (1.0-4.8) th/mm3 [place] # (Auto) 0.6 (0.0-0.9) th/mm3 Eos # (Auto) 0.2 (0.0-0.4) th/mm3 Baso # (Auto) 0.1 (0.0-0.2) th/mm3 WBC Differential . Differential Comment Auto diff final Sodium 142 (136-145) meq/L Potassium 4.1 (3.5-5.1) meq/L Chloride 109 H (98-107) meq/L Carbon Dioxide 27.3 (21.0-32.0) meq/L Anion Gap 6 (5-15) meq/L BUN 13 (7-18) mg/dL Creatinine 1.03 (0.60-1.30) mg/dL Estimated GFR 72 L (>89) mL/min Random Glucose 88 (74-106) mg/dL Calcium 8.4 L (8.5-10.1) mg/dL Magnesium 2.3 (1.5-2.5) mg/dL Total Bilirubin 0.7 (0.2-1.0) mg/dL AST 19 (15-37) U/L ALT 20 (12-78) U/L Alkaline Phosphatase 69 (45-117) U/L Total Protein 7.3 (6.4-8.2) g/dL Albumin 3.5 (3.4-5.0) g/dL TSH 1.080 (0.358-3.740) uIU/mL Salicylates Less than 1.7 L (2.8-20.0) mg/dL Acetaminophen Less than 2.0 L (10.0-30.0) mcg/mL Serum Alcohol Less than 3 (0-5) mg/dL Discharge Plan Discharge Disposition Patient Disposition: 30 Still Patient Discharge Condition Condition: Stable Physicians Team ED Provider: Milena Irizarry Primary Care Provider: UNKNOWN, Rxs /Orders / Referrals /Forms Prescriptions: No Action donepezil 10 mg Tablet 10 mg PO DAILY RF: 0 aspirin [Aspir-81] 81 mg Tablet,Delayed Release (Dr/Ec) 81 mg PO DAILY RF: 0 quetiapine 25 mg Tablet 50 mg PO BID Qty: 60 RF: 0 Status ED Status: With Doctor
[2018-04-11 17:21] LABS: Amphetamine Screen,Urine Neg (Neg); Barbiturate Screen,Urine Neg (Neg); Cannabinoid Screen,Urine Neg (Neg); Cocaine Screen,Urine Neg (Neg)
[2018-04-11 17:22] LABS: Bilirubin,Urine Negative (Negative); Clarity,Urine Clear (Clear); Color,Urine Yellow (Yellw/Straw); Glucose,Urine (UA) Negative (Negative); Leukocyte Esterase,Urine Negative (Negative); Mucus,Urine Few /lpf (Occasional); Nitrite,Urine Negative (Negative); Specific Gravity,Urine 1.018 (1.002-1.035)
[2018-04-11 17:35] LABS: Opiate Screen,Urine Neg (Neg)
--- NOTE | 2018-04-11 17:51 | ED ---
HPI - Psych - General Source: patient, family (Spoke with ), old records reviewed Mode of arrival: ambulatory Limitations: other - History of Present Illness MD complaint: other Onset (ago): week(s) Duration: constant History of same: Yes Relieving factors: none Exacerbating factors: none Context: other (Progression of disease) Associated psychiatric symptoms: visual hallucinations Associated symptoms: confusion Treatments prior to arrival: none If self harm: other (Negative) - General Chief Complaint: Psychiatric Symptoms Stated Complaint: Psych eval/VCSO Time Seen by Provider: 04/11/18 17:00 - History of Present Illness HPI Narrative: History of Present Illness HPI narrative: Patient is a 67 year old, , , male, , with history of dementia Alzheimer's type, PTSD, who comes in under a huerta act initiated by WELLINGTON Tillman at the [facility]. The Huerta act alleges that the patient's is reporting increase in aggressive behavior including verbal and physical aggression towards others over the past week. She also reports that he has been hitting and punching himself in the head, hallucinating and talking to people that are not there, that he is trying to jump out of the car into traffic, that he is wandering at night and attempted to leave the house. This patient was seen and evaluated on March 11, 2018 also under a Huerta act alleging the same behavior. At that time the patient was admitted for evaluation of possible delirium which was ruled out. At that time the patient's medication was changed from Geodon to Seroquel with improvement in his behaviors. He was discharged back to the who was looking into placement. Today the patient presents basically unchanged from evaluation of 03/11/2018. He is oriented only to person. He has difficulty with word finding. When asked how old he is he states" I can go". When asked how old he is he states It will be a long time when I get it". He engages in random activities such as taking his pants off. At this time does not appear to be responding to internal stimuli and has not presented agitated or aggressive behavior. He is unable to provide any history or other clinical information. I called his at [phone]. She repeated the allegations on the Huerta act and states she stated that she felt unsafe taking him home. She goes on to state that" I can't keep him from running away and getting hurt". She has not secure placement for him but tells me that she has an appointment tomorrow at a placement near [facility] and that she will be working with the social media specialist at there.. (Radha Zhao) - Related Data Home Medications Medication Instructions Recorded Confirmed aspirin [Aspir-81] 81 mg PO DAILY 03/10/18 04/11/18 donepezil 10 mg PO DAILY 03/10/18 04/11/18 Previous Rx's Medication Instructions Recorded quetiapine 50 mg PO BID #60 tab 03/17/18 Allergies Allergy/AdvReac Type Severity Reaction Status Date / Time No Known Allergies Allergy Verified 04/11/18 14:37 PMFSH - History History Provided By: Patient - Medical History Medical History: Medical History (Last Reviewed 04/12/18 @ 15:58 by Rosita Kim) Adjustment disorder Tinnitus Dementia - Family History Family History: Family History (Last Updated 04/12/18 @ 15:58 by Rosita Kim) Other Unknown family medical history - Social History I have reviewed the patient's Social History: Yes - Tobacco History Smoking Status: Cognitive impairment - Alcohol History How Often Do You Have a Drink Containing Alcohol: Unable to Obtain - Substance Use History Substance History: Unable to Obtain - Travel History Recent Travel in the [place] Within the Last 8 Weeks: No Recent Travel Out of the Country Within the Last 8 Weeks: No - Immunization History Tetanus Immunization: Unable to Assess Psychiatric History - Psychiatric History History of Inpatient Treatment: No - Psychiatric History No previous psychiatric admissions (Radha Zhao) Physical Exam - General Limitations: other (dementia) Mental Status Examination Appearance: Disheveled Consciousness: Alert Orientation: x4 Motor Activity: Normal gait Speech: Hesitant, Other (Difficulty with word finding) Language: Other Fund of Knowledge: Poor Attention and Concentration: Inadequate Memory: Impaired Mood: Appropriate Affect: Labile Thought Process & Associations: Disorganized Thought Content: Other Hallucination Type: Visual (Reported as having visual hallucinations) Delusion Type: None Suicidal Ideation: No Suicidal Plan: No Suicidal Intention: No Homicidal Ideation: No Homicidal Plan: No Homicidal Intention: No Insight: Poor Judgment: Poor Initial Documented Vital Signs Pulse Rate 78 04/11/18 17:00 Respiratory Rate 16 04/11/18 17:00 Blood Pressure 132/78 04/11/18 17:00 Pulse Oximetry 99 04/11/18 17:00 Last Documented Vital Signs Temperature 98.5 F 04/13/18 06:00 Pulse Rate 84 04/13/18 06:00 Respiratory Rate 18 04/13/18 06:00 Blood Pressure 121/63 04/13/18 06:00 Pulse Oximetry 98 04/13/18 06:00 [facility] - Psych - Diagnosis (1) Dementia with behavioral disturbance Status: Acute (2) PTSD (post-traumatic stress disorder) Status: Acute - Lab Data Result diagrams: 04/11/18 14:30 04/12/18 06:05 - [facility] Narrative Medical decision making narrative: 67-year-old male with history of dementia, severe, history of PTSD who presents under a involuntary status and sent from the [facility] clinic for evaluation. The patient is unable to provide any kind of meaningful information due to his level of cognitive impairment. His is contacted and reports he has had increase in aggressive behavior, increasing wandering behavior, hallucinating, talking to people that are not there, trying to jump out of the car into traffic. She verbalizes her concern for his safety if she were to take him home. Case is discussed with on-call psychiatrist Dr. Gutierrez who recommends admission to inpatient psych for further evaluation, for safety and for stabilization. Patient may require placement as part of discharge planning. ( Radha Zhao) - Lab Data Lab Results 04/11/18 04/11/18 04/11/18 Range/Units 14:30 14:30 14:30 WBC 8.2 (4.0-11.0) th/mm3 RBC 4.72 (4.50-5.90) mil/mm3 Hgb 14.1 (13.0-17.0) gm/dL Hct 40.7 (39.0-51.0) % MCV 86.3 (80.0-100.0) fL MCH 29.9 (27.0-34.0) pg MCHC 34.6 (32.0-36.0) % RDW 13.7 (11.6-17.2) % Plt Count 334 (150-450) th/mm3 MPV 7.3 (7.0-11.0) fL Neut % (Auto) 70.8 H (16.0-70.0) % Lymph % (Auto) 19.7 (9.0-44.0) % [place] % (Auto) 6.9 (0.0-8.0) % Eos % (Auto) 1.8 (0.0-4.0) % Baso % (Auto) 0.8 (0.0-2.0) % Neut # (Auto) 5.8 (1.8-7.7) th/mm3 Lymph # (Auto) 1.6 (1.0-4.8) th/mm3 [place] # (Auto) 0.6 (0.0-0.9) th/mm3 Eos # (Auto) 0.2 (0.0-0.4) th/mm3 Baso # (Auto) 0.1 (0.0-0.2) th/mm3 WBC Differential . Differential Comment Auto diff final Sodium 142 (136-145) meq/L Potassium 4.1 (3.5-5.1) meq/L Chloride 109 H (98-107) meq/L Carbon Dioxide 27.3 (21.0-32.0) meq/L Anion Gap 6 (5-15) meq/L BUN 13 (7-18) mg/dL Creatinine 1.03 (0.60-1.30) mg/dL Estimated GFR 72 L (>89) mL/min Random Glucose 88 (74-106) mg/dL Calcium 8.4 L (8.5-10.1) mg/dL Magnesium 2.3 (1.5-2.5) mg/dL Total Bilirubin 0.7 (0.2-1.0) mg/dL AST 19 (15-37) U/L ALT 20 (12-78) U/L Alkaline Phosphatase 69 (45-117) U/L Total Protein 7.3 (6.4-8.2) g/dL Albumin 3.5 (3.4-5.0) g/dL TSH 1.080 (0.358-3.740) uIU/mL Urine Color (Yellw/Straw) Urine Clarity (Clear) Urine pH (5.0-8.5) Ur Specific [place] (1.002-1.035) Urine Protein (Neg-Trace) mg/dL Urine Glucose (UA) (Negative) mg/dL Urine Ketones (Negative) mg/dL Urine Occult Blood (Negative) Urine Nitrate (Negative) Urine Bilirubin (Negative) Urine Urobilinogen (Less than 2) mg/dL Ur Leukocyte Esterase (Negative) Urine RBC (0-3) /hpf Urine WBC (0-5) /hpf Urine Mucus (Occasional) /lpf Micro UA Comment Ur Microscopic Review Urine Culture Comments Salicylates Less than 1.7 L (2.8-20.0) mg/dL Urine Opiates Screen (Neg) Acetaminophen Less than 2.0 L (10.0-30.0) mcg/mL Ur Barbiturates Screen (Neg) Ur Amphetamines Screen (Neg) U Benzodiazepines Scrn (Neg) Urine Cocaine Screen (Neg) U Cannabinoids Screen (Neg) Serum Alcohol Less than 3 (0-5) mg/dL 04/11/18 04/11/18 Range/Units 16:45 16:45 WBC (4.0-11.0) th/mm3 RBC (4.50-5.90) mil/mm3 Hgb (13.0-17.0) gm/dL Hct (39.0-51.0) % MCV (80.0-100.0) fL MCH (27.0-34.0) pg MCHC (32.0-36.0) % RDW (11.6-17.2) % Plt Count (150-450) th/mm3 MPV (7.0-11.0) fL Neut % (Auto) (16.0-70.0) % Lymph % (Auto) (9.0-44.0) % [place] % (Auto) (0.0-8.0) % Eos % (Auto) (0.0-4.0) % Baso % (Auto) (0.0-2.0) % Neut # (Auto) (1.8-7.7) th/mm3 Lymph # (Auto) (1.0-4.8) th/mm3 [place] # (Auto) (0.0-0.9) th/mm3 Eos # (Auto) (0.0-0.4) th/mm3 Baso # (Auto) (0.0-0.2) th/mm3 WBC Differential Differential Comment Sodium (136-145) meq/L Potassium (3.5-5.1) meq/L Chloride (98-107) meq/L Carbon Dioxide (21.0-32.0) meq/L Anion Gap (5-15) meq/L BUN (7-18) mg/dL Creatinine (0.60-1.30) mg/dL Estimated GFR (>89) mL/min Random Glucose (74-106) mg/dL Calcium (8.5-10.1) mg/dL Magnesium (1.5-2.5) mg/dL Total Bilirubin (0.2-1.0) mg/dL AST (15-37) U/L ALT (12-78) U/L Alkaline Phosphatase (45-117) U/L Total Protein (6.4-8.2) g/dL Albumin (3.4-5.0) g/dL TSH (0.358-3.740) uIU/mL Urine Color Yellow (Yellw/Straw) Urine Clarity Clear (Clear) Urine pH 5.0 (5.0-8.5) Ur Specific [place] 1.018 (1.002-1.035) Urine Protein Negative (Neg-Trace) mg/dL Urine Glucose (UA) Negative (Negative) mg/dL Urine Ketones Negative (Negative) mg/dL Urine Occult Blood Negative (Negative) Urine Nitrate Negative (Negative) Urine Bilirubin Negative (Negative) Urine Urobilinogen 2.0 H (Less than 2) mg/dL Ur Leukocyte Esterase Negative (Negative) Urine RBC Less than 1 (0-3) /hpf Urine WBC Less than 1 (0-5) /hpf Urine Mucus Few H (Occasional) /lpf Micro UA Comment Culture not ind Ur Microscopic Review Not Reportable Urine Culture Comments Culture not ind Salicylates (2.8-20.0) mg/dL Urine Opiates Screen Neg (Neg) Acetaminophen (10.0-30.0) mcg/mL Ur Barbiturates Screen Neg (Neg) Ur Amphetamines Screen Neg (Neg) U Benzodiazepines Scrn Neg (Neg) Urine Cocaine Screen Neg (Neg) U Cannabinoids Screen Neg (Neg) Serum Alcohol (0-5) mg/dL
[2018-04-11] MEDS ORDERED: Aluminum/Magnesium/Simethacone Susp 30 ML UDC PO PRN (17:57)
[2018-04-12 07:40] LABS: Anion Gap 9 meq/L (5-15); Blood Urea Nitrogen 14 mg/dL (7-18); Calcium 8.4 mg/dL (8.5-10.1); Carbon Dioxide 25.8 meq/L (21.0-32.0); Chloride 107 meq/L (98-107); Cholesterol 180 mg/dL (120-200); Glomerular Filtration Rate Greater Than 89 mL/min (>89); Glucose,Random 80 mg/dL (74-106); Potassium 3.3 meq/L (3.5-5.1); Sodium 142 meq/L (136-145)
[2018-04-12 08:06] LABS: Chol/HDL Ratio 2.82 Ratio; HDL Cholesterol 63.7 mg/dL (40.0-60.0); LDL Cholesterol,Calculated 106 mg/dL (0-99); Triglycerides 52 mg/dL (42-150); Vitamin B12 343 pg/mL (193-986)
--- NOTE | 2018-04-12 13:35 | P.HPPSY ---
Provisional Diagnosis Admission Date: April 11, 2018 17:56 [place] I.: Alzheimer's disease with early onset, dementia with behavioral disturbances Competence Certification of Person's Competence To Provide Express and Informed Consent I have personally examined Gabriele Jarrett, a person being served at [facility] on, April 12, 2018 1331. Express and informed consent means consent voluntarily given in writing, by a competent person, after sufficient explanation and disclosure of the subject matter involved to enable the person to make a knowing and willful decision without any element of force, fraud, deceit, duress, or other form of constraint or coercion. This person is 18 years of age or older, is not now known to be incompetent to consent to treatment with a guardian advocate, and does not have a health care surrogate or proxy currently making medical treatment decisions. I have found this person to be one of the following: [] Competent to provide express and informed consent, as defined above, for voluntary admission to this facility and is competent to provide express and informed consent for treatment. He/she has the consistent capacity to make well reasoned, willful, and knowing decisions concerning his or her medical or mental health treatment. The person fully and consistently understands the purpose of the admission for examination/placement and is fully capable of personally exercising all rights assured [place]xxx] Incompetent to provide express and informed consent to voluntary admission , and this is incompetent to provide express and informed consent to treatment. The person must be transferred to involuntary status and a petition for a guardian advocate filed with the Circuit Court. [] Refusing to provide express and informed consent to voluntary admission but is competent to provide express and informed consent for treatment. The person must be discharged or transferred to involuntary status. Form shall be completed within 24 hours of a person's arrival at the receiving facility and filed in the clinical record of each person: 1. Admitted on a voluntary basis 2. Permitted to provide express and informed consent to his/her own treatment 3. Allowed to transfer from involuntary to voluntary status 4. Prior to permitting a person to consent to his or her own treatment after having been previously found incompetent to consent to treatment. History of Present Illness Capacity: Lacks capacity History of Present Illness: Patient is a 67-year-old white male with a history of dementia comes here under [place] [facility] [place] [facility] signed by Aditi PARIS dated 2017 at 12:30 PM that document reviewed and agreed with essentially states altered mental status rule out delirium Alzheimer's disease PTSD chronic also stating that the presents to the clinic with his spouse and caregiver reports that he has been more aggressive verbally and physically towards others over the past week the 's states he is hitting and punching himself in the head hallucinating and talking to people that are not there the patient is trying to jump out of the car into traffic states she is wandering at night and attempting to leave the house the was observed to be agitated hostile and screaming at his the states "his is not his but his girlfriend". Patient seen and screened in the ED urine toxicology negative blood alcohol level negative. At the present time patient sitting quietly in the dayroom is diffusely disoriented in all 4 spheres only recognizes his name. Though at the present time he is showing no behavioral problems. He vaguely acknowledges having memory problems. He does deny any voices in his head and he does deny any suicidality or thoughts of harming anyone. At this time patient does meet criteria for further involuntary inpatient psychiatric hospitalization of the Huerta act I will do first opinion request second opinion. I feel he does not have capacity we will ask for health care surrogate and guardian advocate. We will attempt to reach patient' s to get further information and see if she be willing to be healthcare surrogate. We will have hospitalist consult with us also. We will continue his medications per the med reconciliation. I have also finished the initial inpatient psychiatric admission template. We will continue him on the alcohol that was noted on the med reconciliation - Inpatient Certification I certify that the inpatient services were ordered in accordance with Medicare regulations governing the order. This includes certification that hospital inpatient services are reasonable and necessary and in the case of services not specified as inpatient-only under 42 CFR 419.22(n), that they are appropriately provided as inpatient services in accordance to with the 2-midnight benchmark under 43 CFR 412.3(e) I certify that inpatient psychiatric hospital services are medically necessary. Evaluation and treatment and/or diagnostic testing are expected to improve the patient's condition. The patient needs on a daily basis, active treatment furnished directly by or requiring the supervision of inpatient psychiatric facility personnel. Estimated Total Length of Stay (Days): 8 Plans for Post Hospital Care: Not yet determined Review of Systems unobtainable due to mental condition PMFSH - History History Provided By: Patient - Medical History Medical History: Medical History (Last Reviewed 04/12/18 @ 13:37 by Tesfaye Pimentel MD) Adjustment disorder Tinnitus Dementia - Social History I have reviewed the patient's Social History: Yes - Tobacco History Smoking Status: Cognitive impairment - Alcohol History How Often Do You Have a Drink Containing Alcohol: Unable to Obtain - Substance Use History Substance History: No History of Abuse - Travel History Recent Travel in the [place] Within the Last 8 Weeks: No Recent Travel Out of the Country Within the Last 8 Weeks: No - Immunization History Tetanus Immunization: Unable to Assess Quality Measures - Psychiatric History Psychological trauma history: Abdomen at this time due to patient's dementia though patient is a and has a history of PTSD Violence risk to others in the last 6 months: Patient has been increasingly aggressive towards other residents Violence risk to self in the last 6 months: Patient is showing some self-injurious behaviors as noted by his - Substance Abuse History Drug or alcohol use in the past 12 months: Unknown at this time the urine toxicology negative blood alcohol level negative - Patient Strengths Patient's strengths (minimum of 2): Patient has supportive family able access healthcare Medications and Allergies Active Medications: Active Medications Al Hydrox/Mg Hydrox/Simethicone (Mag-Al Plus Susp Liq) 30 ml PO Q6H PRN PRN Reason: DYSPEPSIA Al Hydroxide/Mg Hydroxide (Milk Of Magnesia Liq) 30 ml PO Q12H PRN PRN Reason: Mild Constipation Al Hydroxide/Mg Hydroxide (Milk Of Magnesia Liq) 30 ml PO Q12H PRN PRN Reason: Mild Constipation Aspirin (Ecotrin) 81 mg PO DAILY [facility] Last Admin: 04/12/18 10:23 Dose: 81 mg Diphenhydramine HCl (Benadryl) 50 mg PO HS PRN PRN Reason: INSOMNIA Hydroxyzine HCl (Atarax) 50 mg PO Q6H PRN PRN Reason: ANXIETY Lactulose (Lactulose Liq) 30 ml PO DAILY PRN PRN Reason: SEVERE CONSITIPATION Non-Formulary Medication (Donepezil [Donepezil]) 10 mg PO DAILY [facility] Quetiapine Fumarate (Seroquel) 50 mg PO BID [facility] Sennosides (Senokot) 17.2 mg PO Q12H PRN PRN Reason: Moderate Constipation Allergies Allergy/AdvReac Type Severity Reaction Status Date / Time No Known Allergies Allergy Verified 04/11/18 14:37 Home Medications Medication Instructions Recorded Confirmed Type aspirin [Aspir-81] 81 mg PO DAILY 03/10/18 04/11/18 History donepezil 10 mg PO DAILY 03/10/18 04/11/18 History Results - Labs CBC & Chem 7: 04/11/18 14:30 04/12/18 06:05 Labs: Laboratory Results - last 24 hr 04/11/18 04/11/18 04/11/18 14:30 14:30 14:30 WBC 8.2 RBC 4.72 Hgb 14.1 Hct 40.7 MCV 86.3 MCH 29.9 MCHC 34.6 RDW 13.7 Plt Count 334 MPV 7.3 Neut % (Auto) 70.8 H Lymph % (Auto) 19.7 Real % (Auto) 6.9 Eos % (Auto) 1.8 Baso % (Auto) 0.8 Neut # (Auto) 5.8 Lymph # (Auto) 1.6 Real # (Auto) 0.6 Eos # (Auto) 0.2 Baso # (Auto) 0.1 WBC Differential . Differential Comment Auto diff final Sodium 142 Potassium 4.1 Chloride 109 H Carbon Dioxide 27.3 Anion Gap 6 BUN 13 Creatinine 1.03 Estimated GFR 72 L Random Glucose 88 Calcium 8.4 L Magnesium 2.3 Total Bilirubin 0.7 AST 19 ALT 20 Alkaline Phosphatase 69 Total Protein 7.3 Albumin 3.5 Triglycerides Cholesterol LDL Cholesterol, Calc HDL Cholesterol Cholesterol/HDL Ratio Vitamin B12 TSH 1.080 Free T4 Urine Color Urine Clarity Urine pH Ur Specific [place] Urine Protein Urine Glucose (UA) Urine Ketones Urine Occult Blood Urine Nitrate Urine Bilirubin Urine Urobilinogen Ur Leukocyte Esterase Urine RBC Urine WBC Urine Mucus Micro UA Comment Ur Microscopic Review Urine Culture Comments Salicylates Less than 1.7 L Urine Opiates Screen Acetaminophen Less than 2.0 L Ur Barbiturates Screen Ur Amphetamines Screen U Benzodiazepines Scrn Urine Cocaine Screen U Cannabinoids Screen Serum Alcohol Less than 3 04/11/18 04/11/18 04/12/18 16:45 16:45 06:05 WBC RBC Hgb Hct MCV MCH MCHC RDW Plt Count MPV Neut % (Auto) Lymph % (Auto) Real % (Auto) Eos % (Auto) Baso % (Auto) Neut # (Auto) Lymph # (Auto) Real # (Auto) Eos # (Auto) Baso # (Auto) WBC Differential Differential Comment Sodium 142 Potassium 3.3 L D Chloride 107 Carbon Dioxide 25.8 Anion Gap 9 BUN 14 Creatinine 0.82 Estimated GFR Greater than 89 Random Glucose 80 Calcium 8.4 L Magnesium Total Bilirubin AST ALT Alkaline Phosphatase Total Protein Albumin Triglycerides 52 Cholesterol 180 LDL Cholesterol, Calc 106 H HDL Cholesterol 63.7 H Cholesterol/HDL Ratio 2.82 Vitamin B12 343 TSH Free T4 1.00 Urine Color Yellow Urine Clarity Clear Urine pH 5.0 Ur Specific [place] 1.018 Urine Protein Negative Urine Glucose (UA) Negative Urine Ketones Negative Urine Occult Blood Negative Urine Nitrate Negative Urine Bilirubin Negative Urine Urobilinogen 2.0 H Ur Leukocyte Esterase Negative Urine RBC Less than 1 Urine WBC Less than 1 Urine Mucus Few H Micro UA Comment Culture not ind Ur Microscopic Review Not Reportable Urine Culture Comments Culture not ind Salicylates Urine Opiates Screen Neg Acetaminophen Ur Barbiturates Screen Neg Ur Amphetamines Screen Neg U Benzodiazepines Scrn Neg Urine Cocaine Screen Neg U Cannabinoids Screen Neg Serum Alcohol Exam Vital signs: Vital Signs 04/11/18 17:00 04/11/18 19:43 04/11/18 20:00 Temperature 97.3 F L 97.4 F L Pulse Rate 78 65 65 Respiratory Rate 16 18 14 Blood Pressure 132/78 177/94 H 174/96 H Pulse Oximetry 99 99 97 04/12/18 06:07 Temperature 98 F Pulse Rate 81 Respiratory Rate 18 Blood Pressure 126/89 Pulse Oximetry 99 Intake & Output 04/11/18 04/12/18 04/12/18 18:59 06:59 18:59 Intake Total 240 / 240 Balance 240 / 240 Weight 155 kg 69.8 kg Intake: Oral 240 / 240 Other: Weight On Admission 70.3 kg Narrative: Patient sitting quietly in Jennifer chair in day room he is in no acute distress, he is in no respiratory distress, no complaints of chest pain or abdominal pain. While sitting patient does move all 4 extremities Mental Status Examination Appearance: Disheveled Consciousness: Alert Orientation: Person Motor Activity: Normal gait Speech: Hesitant, Other (Difficulty with word finding) Language: Other (Poor) Fund of Knowledge: Poor Attention and Concentration: Inadequate Memory: Impaired Mood: Appropriate Affect: Labile Thought Process & Associations: Disorganized Thought Content: Other Hallucination Type: Visual (Denies to me) Delusion Type: None Suicidal Ideation: No Suicidal Plan: No Suicidal Intention: No Homicidal Ideation: No Homicidal Plan: No Homicidal Intention: No Insight: Poor Judgment: Poor Assessment and Plan - Assessment (1) Dementia with behavioral disturbance Code(s): F03.91 - Unspecified dementia with behavioral disturbance Status: Acute (2) PTSD (post-traumatic stress disorder) Code(s): F43.10 - Post-traumatic stress disorder, unspecified Status: Acute - Plan Plan: Estimated LOS: [] days Patient remains quite demented and confused, with a history of behavioral disturbances. Will continue his medication per the med reconciliation including the Seroquel. Will attempt to meet with patient's the next day or 2 to discuss further treatment medications and placement issues we will also have the hospitalist consult will us Justification for Continued Inpatient Stay: At this time patient would decompensate a place to a lower level of care Discharge Planning: To be determined Request Healthcare Surrogate/Guardian Advocate?: Yes (1) Dementia with behavioral disturbance Qualifiers: Dementia type: Alzheimer's disease Alzheimer's disease onset: early-onset Qualified Code(s): G30.0 - Alzheimer's disease with early onset; F02.81 - Dementia in other diseases classified elsewhere with behavioral disturbance
--- NOTE | 2018-04-12 16:12 | P.CON ---
History of Present Illness Service: Hospitalists Consult date: 04/12/18 Requesting Physician: Tesfaye Pimentel Reason for Consult: Hx of HTN, on medication, please assess Primary Care Provider: UNKNOWN Chief Complaint: agitation History of Present Illness: 67-year-old male with history of dementia, admitted to inpatient psychiatry under Huerta Act placed 04/11/18 due to aggressive and erratic behavior at home with his . Hospitalists consulted for "history of hypertension, on medications, please assess". The patient was recently admitted 03/10-03/17 after the brought him to the ED because she felt she can no longer care for him. During previous admission, the patient was not on any antihypertensives and BP was very well controlled unless the patient was agitated. His BP upon arrival during this visit is 170s/90s, however improved spontaneously without medications to 126/89 this morning. The patient is oriented to self only at baseline and is an extremely unreliable historian. He currently denies any medical complaints including no headache, lightheadedness, chest pain, shortness of breath, abdominal or urinary complaints. Review of Systems All other systems reviewed negative except as stated [facility] - History History Provided By: Patient - Medical / Surgical Hx Neg / Unobtainable Surgical History: Unable to Obtain - Medical History Medical History: Medical History (Last Reviewed 04/12/18 @ 15:58 by Rosita Kim) Adjustment disorder Tinnitus Dementia - Family History Family History: Family History (Last Updated 04/12/18 @ 15:58 by Rosita Kim) Other Unknown family medical history - Social History I have reviewed the patient's Social History: Yes - Tobacco History Tobacco Use In Past 30 Days: No Smoking Status: Unknown if ever smoked - Alcohol History How Often Do You Have a Drink Containing Alcohol: Unable to Obtain - Substance Use History Substance History: No History of Abuse - Travel History Recent Travel in the [place] Within the Last 8 Weeks: No Recent Travel Out of the Country Within the Last 8 Weeks: No - Immunization History Tetanus Immunization: Unable to Assess Medications and Allergies Active Medications: Active Medications Al Hydrox/Mg Hydrox/Simethicone (Mag-Al Plus Susp Liq) 30 ml PO Q6H PRN PRN Reason: DYSPEPSIA Al Hydroxide/Mg Hydroxide (Milk Of Magnesia Liq) 30 ml PO Q12H PRN PRN Reason: Mild Constipation Al Hydroxide/Mg Hydroxide (Milk Of Magnesia Liq) 30 ml PO Q12H PRN PRN Reason: Mild Constipation Aspirin (Ecotrin) 81 mg PO DAILY [facility] Last Admin: 04/12/18 10:23 Dose: 81 mg Diphenhydramine HCl (Benadryl) 50 mg PO HS PRN PRN Reason: INSOMNIA Donepezil HCl (Aricept) 10 mg PO DAILY [facility] Hydroxyzine HCl (Atarax) 50 mg PO Q6H PRN PRN Reason: ANXIETY Lactulose (Lactulose Liq) 30 ml PO DAILY PRN PRN Reason: SEVERE CONSITIPATION Quetiapine Fumarate (Seroquel) 50 mg PO BID [facility] Sennosides (Senokot) 17.2 mg PO Q12H PRN PRN Reason: Moderate Constipation Allergies Allergy/AdvReac Type Severity Reaction Status Date / Time No Known Allergies Allergy Verified 04/11/18 14:37 Home Medications Medication Instructions Recorded Confirmed Type aspirin [Aspir-81] 81 mg PO DAILY 03/10/18 04/11/18 History donepezil 10 mg PO DAILY 03/10/18 04/11/18 History Physical Exam Vital signs: Vital Signs 04/11/18 17:00 04/11/18 19:43 04/11/18 20:00 Temperature 97.3 F L 97.4 F L Pulse Rate 78 65 65 Respiratory Rate 16 18 14 Blood Pressure 132/78 177/94 H 174/96 H Pulse Oximetry 99 99 97 04/12/18 06:07 Temperature 98 F Pulse Rate 81 Respiratory Rate 18 Blood Pressure 126/89 Pulse Oximetry 99 Intake & Output 04/11/18 04/12/18 04/12/18 18:59 06:59 18:59 Intake Total 240 / 240 Balance 240 / 240 Weight 155 kg 69.8 kg Intake: Oral 240 / 240 Other: Weight On Admission 70.3 kg Narrative: GENERAL: Tall thin pleasantly confused elderly male patient in [facility]. SKIN: Warm and dry. No rash. HEENT: Normocephalic. Atraumatic. Pupils equal and round. Mucous membranes pink and moist. NECK: Supple. Trachea midline. CARDIOVASCULAR: Regular rate and rhythm. No murmur appreciated. RESPIRATORY: No accessory muscle use. Clear to auscultation. Breath sounds equal bilaterally. GASTROINTESTINAL: Abdomen soft, non-tender, nondistended. Normoactive bowel sounds x4. MUSCULOSKELETAL: No obvious deformities. Extremities without clubbing, cyanosis , or edema. NEUROLOGICAL: Awake and alert. No obvious cranial nerve deficits. Motor grossly within normal limits. Moving all extremities spontaneously. Normal speech. PSYCHIATRIC: Pleasantly confused; insight and judgment very limited. Assessment and Plan - Plan 67-year-old male with history of dementia, admitted to inpatient psychiatry under Huerta Act placed 04/11/18 due to aggressive and erratic behavior at home with his . Hospitalists consulted for "history of hypertension, on medications, please assess". The patient was recently admitted 03/10-03/17 after the brought him to the ED because she felt she can no longer care for him. He is not on any antihypertensives. Dementia with Behavioral Disturbances: acute on chronic -presented under Huerta Act -management per psychiatry -continue on seroquel and Aricept Intermittent Hypertension: suspect secondary to agitation, BP upon arrival 170s/ 90s however improved spontaneously without meds to 126/89 -EMR reviewed, patient did not require any antihypertensives on last admission 03/10-03/17 -Will monitor BP for now, consider adding low dose antihypertensive if persistently elevated Hypokalemia: K 3.3 -given po KCl replacement DVT Prophylaxis: ambulation
[2018-04-12 17:31] LABS: Hemoglobin A1c 5.3 % (4.3-6.0)
[2018-04-12] MEDS: QUEtiapine 25 MG Tablet PO SCH (20:24)
[2018-04-13] MEDS: QUEtiapine 25 MG Tablet PO SCH ×2 (09:36→20:07)
--- NOTE | 2018-04-13 13:11 | P.CONPSY ---
Provisional Diagnosis Admission Date: April 11, 2018 17:56 [place] I.: 1. 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 Pimentel's H&P: Patient is a 67-year-old white male with a history of dementia comes here under [place] from the [place] outpatient clinic signed by Aditi PARIS dated 2017 at 12:30 PM that document reviewed and agreed with essentially states altered mental status rule out delirium Alzheimer's disease PTSD chronic also stating that the presents to the clinic with his spouse and caregiver reports that he has been more aggressive verbally and physically towards others over the past week the 's states he is hitting and punching himself in the head hallucinating and talking to people that are not there the patient is trying to jump out of the car into traffic states she is wandering at night and attempting to leave the house the was observed to be agitated hostile and screaming at his the states "his is not his but his girlfriend". Patient seen and screened in the ED urine toxicology negative blood alcohol level negative. At the present time patient sitting quietly in the dayroom is diffusely disoriented in all 4 spheres only recognizes his name. Though at the present time he is showing no behavioral problems. He vaguely acknowledges having memory problems. He does deny any voices in his head and he does deny any suicidality or thoughts of harming anyone. At this time patient does meet criteria for further involuntary inpatient psychiatric hospitalization of the Huerta act I will do first opinion request second opinion. I feel he does not have capacity we will ask for health care surrogate and guardian advocate. We will attempt to reach patient' s to get further information and see if she be willing to be healthcare surrogate. We will have hospitalist consult with us also. We will continue his medications per the med reconciliation. I have also finished the initial inpatient psychiatric admission template. We will continue him on the alcohol that was noted on the med reconciliation On my examination today, 04/13: Patient seen and examined with nurse. Chart reviewed. Case discussed with nursing staff. I find the patient wandering around the unit. He is profoundly confused and disoriented. His thought process is disorganized, and his speech is essentially word salad. Nurse indicated this has been patient's mental status throughout the shift. Patient cannot be made to follow even simple commands. He is fairly disheveled. Psychiatric interview is significantly limited because of the patient's degree of cognitive impairment, and I am unable to obtain any meaningful past psychiatric, family, chemical dependency or social history from the patient for the same reason. No evidence of acute physical distress. Review of Systems unobtainable due to mental status PMFSH - History History Provided By: Patient - Medical History Medical History: Medical History (Last Reviewed 04/12/18 @ 15:58 by Rosita Kim) Adjustment disorder Tinnitus Dementia - Family History Family History: Family History (Last Updated 04/12/18 @ 15:58 by Rosita Kim) Other Unknown family medical history - Tobacco History Tobacco Use In Past 30 Days: No Smoking Status: Cognitive impairment - Alcohol History How Often Do You Have a Drink Containing Alcohol: Unable to Obtain - Substance Use History Substance History: Unable to Obtain - Travel History Recent Travel in the [place] Within the Last 8 Weeks: No Recent Travel Out of the Country Within the Last 8 Weeks: No - Immunization History Tetanus Immunization: Unable to Assess Medications and Allergies Active Medications: Active Medications Al Hydrox/Mg Hydrox/Simethicone (Mag-Al Plus Susp Liq) 30 ml PO Q6H PRN PRN Reason: DYSPEPSIA Al Hydroxide/Mg Hydroxide (Milk Of Magnesia Liq) 30 ml PO Q12H PRN PRN Reason: Mild Constipation Al Hydroxide/Mg Hydroxide (Milk Of Magnesia Liq) 30 ml PO Q12H PRN PRN Reason: Mild Constipation Aspirin (Ecotrin) 81 mg PO DAILY [facility] Last Admin: 04/13/18 09:36 Dose: 81 mg Diphenhydramine HCl (Benadryl) 50 mg PO HS PRN PRN Reason: INSOMNIA Donepezil HCl (Aricept) 10 mg PO DAILY [facility] Last Admin: 04/13/18 09:35 Dose: 10 mg Hydroxyzine HCl (Atarax) 50 mg PO Q6H PRN PRN Reason: ANXIETY Lactulose (Lactulose Liq) 30 ml PO DAILY PRN PRN Reason: SEVERE CONSITIPATION Quetiapine Fumarate (Seroquel) 50 mg PO BID [facility] Last Admin: 04/13/18 09:36 Dose: 50 mg Sennosides (Senokot) 17.2 mg PO Q12H PRN PRN Reason: Moderate Constipation Allergies Allergy/AdvReac Type Severity Reaction Status Date / Time No Known Allergies Allergy Verified 04/11/18 14:37 Home Medications Medication Instructions Recorded Confirmed Type aspirin [Aspir-81] 81 mg PO DAILY 03/10/18 04/11/18 History donepezil 10 mg PO DAILY 03/10/18 04/11/18 History Exam Vital signs: Vital Signs 04/13/18 06:00 Temperature 98.5 F Pulse Rate 84 Respiratory Rate 18 Blood Pressure 121/63 Pulse Oximetry 98 Intake & Output 04/12/18 04/13/18 04/13/18 18:59 06:59 18:59 Intake Total 600 / 600 0 / 0 Balance 600 / 600 0 / 0 Intake: Oral 600 / 600 0 / 0 Narrative: Physical examination completed by hospitalist contract consultant. On my examination today, the patient appears to be in no acute physical distress. No motor abnormalities noted. Labs and vital signs reviewed: Laboratory Tests 04/11/18 04/11/18 04/11/18 14:30 14:30 16:45 WBC 8.2 Hgb 14.1 Plt Count 334 Sodium Potassium Chloride Carbon Dioxide BUN Creatinine Estimated GFR Random Glucose AST 19 ALT 20 Alkaline Phosphatase 69 TSH 1.080 Free T4 Urine Opiates Screen Neg Ur Barbiturates Screen Neg Ur Amphetamines Screen Neg U Benzodiazepines Scrn Neg Urine Cocaine Screen Neg U Cannabinoids Screen Neg Serum Alcohol Less than 3 04/12/18 06:05 WBC Hgb Plt Count Sodium 142 Potassium 3.3 L D Chloride 107 Carbon Dioxide 25.8 BUN 14 Creatinine 0.82 Estimated GFR Greater than 89 Random Glucose 80 AST ALT Alkaline Phosphatase TSH Free T4 1.00 Urine Opiates Screen Ur Barbiturates Screen Ur Amphetamines Screen U Benzodiazepines Scrn Urine Cocaine Screen U Cannabinoids Screen Serum Alcohol Mental Status Examination Appearance: Disheveled Consciousness: Alert Orientation: Person (Disoriented) Motor Activity: Normal gait Speech: Other (Rambling) Language: Word salad Fund of Knowledge: Inadequate Attention and Concentration: Inadequate Memory: Impaired Mood: Other (Calm) Affect: Blunt Thought Process & Associations: Disorganized Hallucination Type: Other (Unable to assess secondary to thought disorder) Delusion Type: Other (Unable to assess secondary to thought disorder) Suicidal Ideation: No (No SI voiced) Homicidal Ideation: No (No HI voiced) Insight: Poor Judgment: Poor Assessment and Plan - Assessment (1) Dementia with behavioral disturbance Code(s): F03.91 - Unspecified dementia with behavioral disturbance Status: Acute - Plan Plan: Given the circumstances of the patient's presentation here and his presentation on my examination today, I concur with Dr. Pimentel that the patient meets criteria for involuntary psychiatric hospitalization under the Huerta act. Main concern here is for self-care deficit secondary to dementing illness, although there may also be some concern for risk of harm to others given presenting situation. I have completed the second opinion paperwork. Further care as per Dr. Pimentel. Thank you very much for this consultation. Signing off. Justification for Continued Inpatient Stay: Per Dr. Pimentel. Request Healthcare Surrogate/Guardian Advocate?: Yes (1) Dementia with behavioral disturbance Qualifiers: Dementia type: Alzheimer's disease Alzheimer's disease onset: early-onset Qualified Code(s): G30.0 - Alzheimer's disease with early onset; F02.81 - Dementia in other diseases classified elsewhere with behavioral disturbance
--- NOTE | 2018-04-13 13:39 | P.PNPSY ---
Subjective Remarks: Patient seen and reyes with nurse Terrazas, chart reviewed, patient compliant medication. Patient continues alert though diffusely grossly confused place time and situation his responses are disorganized tangential circumstantial with no goal orientation. However he has been no behavioral problem. For now continue treatment no change need to continue working with family related to appropriate placement Review of Systems All other systems reviewed negative except as stated in HPI Mental Status Examination Appearance: Disheveled Consciousness: Alert Motor Activity: Normal gait Speech: Hesitant, Other (Difficulty with word finding) Language: Other (Markedly disorganized) Fund of Knowledge: Poor Attention and Concentration: Inadequate Memory: Impaired Mood: Other (Euthymic to somewhat restricted) Affect: Other (Good range and intensity) Thought Process & Associations: Disorganized Thought Content: Other (Markedly disorganized) Hallucination Type: Visual (Reported as having visual hallucinations) Delusion Type: None Suicidal Ideation: No Suicidal Plan: No Suicidal Intention: No Homicidal Ideation: No Homicidal Plan: No Homicidal Intention: No Insight: Poor Judgment: Poor Assessment and Plan - Assessment (1) Dementia with behavioral disturbance Code(s): F03.91 - Unspecified dementia with behavioral disturbance Status: Acute (2) PTSD (post-traumatic stress disorder) Code(s): F43.10 - Post-traumatic stress disorder, unspecified Status: Acute - Plan Plan: Patient remains diffusely confused disorganized demented, though no significant behavioral problems, compliant medications, we will continue to work with family to find appropriate placement Justification for Continued Inpatient Stay: At this time patient would decompensate a place to a lower level of care Discharge Planning: To be determined continue working with family to find appropriate placement Request Healthcare Surrogate/Guardian Advocate?: Yes (1) Dementia with behavioral disturbance Qualifiers: Dementia type: Alzheimer's disease Alzheimer's disease onset: early-onset Qualified Code(s): G30.0 - Alzheimer's disease with early onset; F02.81 - Dementia in other diseases classified elsewhere with behavioral disturbance
--- NOTE | 2018-04-13 15:29 | P.PN ---
Subjective Interval history: The patient is seen in the day room. Oriented to self only. Has no medical complaints. Vitals reviewed and stable. Physical Exam Vital signs: Vital Signs 04/13/18 06:00 Temperature 98.5 F Pulse Rate 84 Respiratory Rate 18 Blood Pressure 121/63 Pulse Oximetry 98 Intake & Output 04/12/18 04/13/18 04/13/18 18:59 06:59 18:59 Intake Total 600 / 600 0 / 0 Balance 600 / 600 0 / 0 Intake: Oral 600 / 600 0 / 0 Narrative: GENERAL: Tall thin pleasantly confused elderly male patient in [facility]. SKIN: Warm and dry. No rash. HEENT: Normocephalic. Atraumatic. Pupils equal and round. Mucous membranes pink and moist. NECK: Supple. Trachea midline. CARDIOVASCULAR: Regular rate and rhythm. No murmur appreciated. RESPIRATORY: No accessory muscle use. Clear to auscultation. Breath sounds equal bilaterally. GASTROINTESTINAL: Abdomen soft, non-tender, nondistended. Normoactive bowel sounds x4. MUSCULOSKELETAL: No obvious deformities. Extremities without clubbing, cyanosis , or edema. NEUROLOGICAL: Awake and alert. No obvious cranial nerve deficits. Motor grossly within normal limits. Moving all extremities spontaneously. Normal speech. PSYCHIATRIC: Pleasantly confused; insight and judgment very limited. Results - Labs CBC & Chem 7: 04/11/18 14:30 04/12/18 06:05 Laboratory Results - last 24 hr 04/12/18 06:05 Hemoglobin A1c 5.3 Assessment and Plan - Plan 67-year-old male with history of dementia, admitted to inpatient psychiatry under Huerta Act placed 04/11/18 due to aggressive and erratic behavior at home with his . Hospitalists consulted for "history of hypertension, on medications, please assess". The patient was recently admitted 03/10-03/17 after the brought him to the ED because she felt she can no longer care for him. He is not on any antihypertensives. Dementia with Behavioral Disturbances: acute on chronic -presented under Huerta Act -management per psychiatry -continue on seroquel and Aricept Intermittent Hypertension: suspect secondary to agitation, BP upon arrival 170s/ 90s however improved spontaneously without meds to 126/89 -EMR reviewed, patient did not require any antihypertensives on last admission 03/10-03/17 -Will monitor BP for now, consider adding low dose antihypertensive if persistently elevated -04/13 BP in 120s/60s without any antihypertensives, stable. Hypokalemia: K 3.3 -given po KCl replacement Hyperlipidemia: LDL 106, no hx of stroke, diabetes, or heart disease -diet control for now -repeat outpatient lipid panel in 3 months DVT Prophylaxis: ambulation Discharge Planning: The patient is medically stable at this time, hospitalist team will sign off. Please re-consult as needed if any new medical issues arise. Thank you for this consultation.
[2018-04-14] MEDS: QUEtiapine 25 MG Tablet PO SCH ×2 (08:11→21:46)
--- NOTE | 2018-04-14 14:06 | P.PNPSY ---
Subjective Remarks: Patient was seen and case discussed with nursing. Patient is alert and oriented x1. He is very confused and not aware of his actions. He is spending his time spending in the hallway responding to internal stimuli. During the interview, he answers inappropriately he may have some aphasia. Compliant with medications. Another patient accused of him exposing himself to her. Patient is confused by questioning and just repeats his last name Mental Status Examination Appearance: Disheveled Consciousness: Alert Orientation: Person (Disoriented) Motor Activity: Normal gait Speech: Other (Rambling) Language: Word salad Fund of Knowledge: Inadequate Attention and Concentration: Inadequate Memory: Impaired Mood: Other (Calm) Affect: Blunt Thought Process & Associations: Disorganized Thought Content: Other (Markedly disorganized) Hallucination Type: Other (Unable to assess secondary to thought disorder) Delusion Type: Other (Unable to assess secondary to thought disorder) Suicidal Ideation: No (No SI voiced) Suicidal Plan: No Suicidal Intention: No Homicidal Ideation: No (No HI voiced) Homicidal Plan: No Homicidal Intention: No Insight: Poor Judgment: Poor Assessment and Plan - Assessment (1) Dementia with behavioral disturbance Code(s): F03.91 - Unspecified dementia with behavioral disturbance Status: Acute - Plan Plan: Continue current treatment plan Justification for Continued Inpatient Stay: Patient would decompensate in a less restrictive setting Request Healthcare Surrogate/Guardian Advocate?: Yes (1) Dementia with behavioral disturbance Qualifiers: Dementia type: Alzheimer's disease Alzheimer's disease onset: early-onset Qualified Code(s): G30.0 - Alzheimer's disease with early onset; F02.81 - Dementia in other diseases classified elsewhere with behavioral disturbance
--- NOTE | 2018-04-15 07:57 | P.PNPSY ---
Subjective Remarks: Medical record reviewed and discussed with nursing staff. Patient in day room eating breakfast. Rounded with SHELTON Casas. Patient is confused and has some expressive aphasia. He is oriented to self. Unable to identify that he is in the hospital. Cannot recall which branch of the services that he was in. Nursing reports that yesterday he was using some profanity , but this has stopped. No behavioral concerns at this time. Medication compliant. Review of Systems All other systems reviewed negative except as stated in HPI Mental Status Examination Appearance: Disheveled Consciousness: Alert Orientation: Person (Disoriented) Motor Activity: Normal gait Speech: Other (Rambling) Language: Word salad Fund of Knowledge: Inadequate Attention and Concentration: Inadequate Memory: Impaired Mood: Other (Calm) Affect: Blunt Thought Process & Associations: Disorganized Thought Content: Other (Markedly disorganized) Hallucination Type: Other (Unable to assess secondary to thought disorder) Delusion Type: Other (Unable to assess secondary to thought disorder) Suicidal Ideation: No (No SI voiced) Suicidal Plan: No Suicidal Intention: No Homicidal Ideation: No (No HI voiced) Homicidal Plan: No Homicidal Intention: No Insight: Poor Judgment: Poor Assessment and Plan - Assessment (1) Dementia with behavioral disturbance Code(s): F03.91 - Unspecified dementia with behavioral disturbance Status: Acute - Plan Plan: Continue current treatment plan Justification for Continued Inpatient Stay: Moving patient to a less restrictive environment may result in his decompensation. Request Healthcare Surrogate/Guardian Advocate?: Yes (1) Dementia with behavioral disturbance Qualifiers: Dementia type: Alzheimer's disease Alzheimer's disease onset: early-onset Qualified Code(s): G30.0 - Alzheimer's disease with early onset; F02.81 - Dementia in other diseases classified elsewhere with behavioral disturbance
[2018-04-15] MEDS: QUEtiapine 25 MG Tablet PO SCH ×2 (08:20→20:06)
[2018-04-16] MEDS: QUEtiapine 25 MG Tablet PO SCH ×3 (09:02→17:59)
--- NOTE | 2018-04-16 10:42 | P.PNPSY ---
Subjective Remarks: Patient is seen in day room with nurse past, chart reviewed, patient compliant medication. Patient continues diffusely confused oriented basically to self only. However patient has shown quality with personal boundaries and personal space. He did come quite close to me touch my arm and my back in a somewhat intimate manner. Another female patient stated that he exposed himself to her. This it appears as verified by the staff. I attempted to grief counsellor patient about need for appropriate respecting boundaries. But I question his ability to process that. We will increase Seroquel to 50 mg 3 times daily Review of Systems All other systems reviewed negative except as stated in HPI Mental Status Examination Appearance: Disheveled Consciousness: Alert Orientation: Person (Disoriented) Motor Activity: Normal gait Speech: Other (Rambling) Language: Word salad Fund of Knowledge: Inadequate Attention and Concentration: Inadequate Memory: Impaired Mood: Other (Euthymic to somewhat superficial and childlike) Affect: Other (Decreased range slightly increased in intensity) Thought Process & Associations: Disorganized Thought Content: Other (Markedly disorganized) Hallucination Type: Other (Unable to assess secondary to thought disorder) Delusion Type: Other (Unable to assess secondary to thought disorder) Suicidal Ideation: No (No SI voiced) Suicidal Plan: No Suicidal Intention: No Homicidal Ideation: No (No HI voiced) Homicidal Plan: No Homicidal Intention: No Insight: Poor Judgment: Poor Assessment and Plan - Assessment (1) Dementia with behavioral disturbance Code(s): F03.91 - Unspecified dementia with behavioral disturbance Status: Acute - Plan Plan: Patient remained severely demented and confused. Though he also showing some poor boundaries related to personal space and somewhat inappropriate sexual behaviors though he has had no other significant behavioral problems, and is redirectable will increase Seroquel to 50 mg 3 times daily Justification for Continued Inpatient Stay: This time patient would decompensate if placed in a lower level of care Discharge Planning: To be determined Request Healthcare Surrogate/Guardian Advocate?: Yes (1) Dementia with behavioral disturbance Qualifiers: Dementia type: Alzheimer's disease Alzheimer's disease onset: early-onset Qualified Code(s): G30.0 - Alzheimer's disease with early onset; F02.81 - Dementia in other diseases classified elsewhere with behavioral disturbance
[2018-04-17] MEDS: QUEtiapine 25 MG Tablet PO SCH ×3 (09:17→18:00)
--- NOTE | 2018-04-17 11:44 | P.PNPSY ---
Subjective Remarks: Patient is seen in day room with floor staff, chart reviewed, patient compliant medication. Patient continues diffusely confused disoriented somewhat superficial and silly but no behavioral problems noted so far today he continues with somewhat limited insight into personal space but better than yesterday Review of Systems All other systems reviewed negative except as stated in HPI Mental Status Examination Appearance: Disheveled Consciousness: Alert Orientation: Person (Disoriented) Motor Activity: Normal gait Speech: Other (Rambling) Language: Word salad Fund of Knowledge: Inadequate Attention and Concentration: Inadequate Memory: Impaired Mood: Other (Euthymic to somewhat superficial and childlike) Affect: Other (Decreased range slightly increased in intensity) Thought Process & Associations: Disorganized Thought Content: Other (Markedly disorganized) Hallucination Type: Other (Unable to assess secondary to thought disorder) Suicidal Ideation: No (No SI voiced) Suicidal Plan: No Suicidal Intention: No Homicidal Ideation: No (No HI voiced) Homicidal Plan: No Homicidal Intention: No Insight: Poor Judgment: Poor Assessment and Plan - Assessment (1) Dementia with behavioral disturbance Code(s): F03.91 - Unspecified dementia with behavioral disturbance Status: Acute - Plan Plan: Patient continues diffusely confused disoriented demented, compliant medications , no behavior problems noted so far today for now continue treatment Justification for Continued Inpatient Stay: At this time patient would decompensate if placed in a lower level of care Discharge Planning: To be determined Request Healthcare Surrogate/Guardian Advocate?: Yes (1) Dementia with behavioral disturbance Qualifiers: Dementia type: Alzheimer's disease Alzheimer's disease onset: early-onset Qualified Code(s): G30.0 - Alzheimer's disease with early onset; F02.81 - Dementia in other diseases classified elsewhere with behavioral disturbance
[2018-04-18] MEDS ORDERED: Haloperidol Inj 5 MG/ML Ampul ONE (08:04)
[2018-04-18] MEDS: QUEtiapine 25 MG Tablet PO SCH (08:16)
[2018-04-18] MEDS ORDERED: Haloperidol Inj 5 MG/ML Ampul IM ONE (08:30)
--- NOTE | 2018-04-18 09:54 | P.PNPSY ---
Subjective Remarks: Prior to seeing patient today he became angry and disruptive on the unit this necessitated a as needed of Haldol 5 mg IM and Benadryl 25 mg IM. Patient's seen by me later in the morning. Patient is seen with nurse, chart reviewed, patient is showing reluctant compliance with medication and with encouragement. He is now calm, he continues diffusely confused disorganized. We will increase Seroquel to 100 mg 8 AM 100 mg 4 PM he also continues intrusive silly with some inappropriate behaviors at times including urinating on the floor in an other patients beds Review of Systems All other systems reviewed negative except as stated in HPI Mental Status Examination Appearance: Disheveled Consciousness: Alert Orientation: Person (Disoriented) Motor Activity: Normal gait Speech: Other (Rambling) Language: Word salad Fund of Knowledge: Inadequate Attention and Concentration: Inadequate Memory: Impaired Mood: Angry (Mildly), Irritable (Somewhat today), Other (Euthymic to somewhat superficial and childlike) Affect: Other (Decreased range slightly increased in intensity) Thought Process & Associations: Disorganized Thought Content: Other (Markedly disorganized) Hallucination Type: Other (Unable to assess secondary to thought disorder) Delusion Type: Other (Unable to assess secondary to thought disorder) Suicidal Ideation: No (No SI voiced) Suicidal Plan: No Suicidal Intention: No Homicidal Ideation: No (No HI voiced) Homicidal Plan: No Homicidal Intention: No Insight: Poor Judgment: Poor Assessment and Plan - Assessment (1) Dementia with behavioral disturbance Code(s): F03.91 - Unspecified dementia with behavioral disturbance Status: Acute - Plan Plan: Patient remains confused disoriented demented, with increased behavioral issues this morning. Placement medication adjustments Justification for Continued Inpatient Stay: At this time patient would decompensate a place to a lower level of care Discharge Planning: Placement may become somewhat problematic Request Healthcare Surrogate/Guardian Advocate?: Yes (1) Dementia with behavioral disturbance Qualifiers: Dementia type: Alzheimer's disease Alzheimer's disease onset: early-onset Qualified Code(s): G30.0 - Alzheimer's disease with early onset; F02.81 - Dementia in other diseases classified elsewhere with behavioral disturbance
[2018-04-18] MEDS: QUEtiapine 100 MG Tablet PO SCH (12:00)
[2018-04-18] MEDS ORDERED: Haloperidol Inj 5 MG/ML Ampul IM STA ×2 (12:13→12:27)
--- NOTE | 2018-04-18 13:15 | P.TTN ---
- Patient Problems Problems: 1. Discharge planning 2. Medication compliance 3. Knowledge deficit 4. Lack of coping skills - Progress Toward Goals Provider Present: Dr. Tha Pimentel Provider Input: 04/18/18: pt has required recent ETO, medications currently being titrated as pt has not presented with consistent stabilized behaviors. Pt is accepted to [facility], and will return when stabilized, per counselorRatna. Group Spec/RT/OT/COLE Present: John Love OT Group Spec/RT/OT/COLE Input: Pt is unable to tolerate group activities. - Discharge Plan 04/18/18: Pt is accepted to [facility], and will return when stabilized, per counselorRatna. - Documentation Teaching Recipient: Patient
[2018-04-19] MEDS ORDERED: Haloperidol Inj 5 MG/ML Ampul ONE (07:39)
[2018-04-19] MEDS ORDERED: Haloperidol Inj 5 MG/ML Ampul IM ONE (09:00)
--- NOTE | 2018-04-19 11:25 | P.PNPSY ---
Subjective Remarks: Patient was presented to [facility] today his and daughter were present. Patient case continued for [address] Patient needed and ETO last night due to head banging and [id number] behavior. I was called earlier this morning for similar behaviors by him necessitating another ETO. Patient seen this morning in his room he was somewhat sedated but arousable continues diffusely confused and disoriented. Though showing some continued irritability patient Seroquel was adjusted yesterday for now continue treatment no change Review of Systems All other systems reviewed negative except as stated in HPI Mental Status Examination Appearance: Disheveled Consciousness: Alert Orientation: Person (Disoriented) Motor Activity: Normal gait Speech: Other (Rambling) Language: Word salad Fund of Knowledge: Inadequate Attention and Concentration: Inadequate Memory: Impaired Mood: Angry (Mildly), Irritable (Somewhat today) Affect: Other (Decreased range slightly increased in intensity) Thought Process & Associations: Disorganized Thought Content: Other (Markedly disorganized) Hallucination Type: Other (Unable to assess secondary to thought disorder) Delusion Type: Other (Unable to assess secondary to thought disorder) Suicidal Ideation: No (No SI voiced) Suicidal Plan: No Suicidal Intention: No Homicidal Ideation: No (No HI voiced) Homicidal Plan: No Homicidal Intention: No Insight: Poor Judgment: Poor Assessment and Plan - Assessment (1) Dementia with behavioral disturbance Code(s): F03.91 - Unspecified dementia with behavioral disturbance Status: Acute - Plan Plan: Patient continues demented confused though with increased aggressive self mutilating behaviors necessitating an ETO's x2 over the past 12 to 14 hours Justification for Continued Inpatient Stay: At this time patient would decompensate a place to a lower level of care Discharge Planning: To be determined with assistance from family Request Healthcare Surrogate/Guardian Advocate?: Yes (1) Dementia with behavioral disturbance Qualifiers: Dementia type: Alzheimer's disease Alzheimer's disease onset: early-onset Qualified Code(s): G30.0 - Alzheimer's disease with early onset; F02.81 - Dementia in other diseases classified elsewhere with behavioral disturbance
[2018-04-19] MEDS: QUEtiapine 100 MG Tablet PO SCH ×2 (11:54→16:36)
[2018-04-20] MEDS: QUEtiapine 100 MG Tablet PO SCH ×2 (08:27→17:13)
--- NOTE | 2018-04-20 10:36 | P.PNPSY ---
Subjective Remarks: Patient seen and reyes with floor staff, patient slowly pacing with a marked confused sad irritated expression. Continues diffusely confused in all 4 spheres wondering where he is in the left see doing. Patient is needed frequent interventions. He continues to wander in other rooms. For now we will increase Seroquel to 100 mg 8 AM and 6 PM and 50 mg at 1 PM Review of Systems All other systems reviewed negative except as stated in HPI Mental Status Examination Appearance: Disheveled Consciousness: Alert Orientation: Person (Disoriented) Motor Activity: Normal gait Speech: Other (Rambling) Language: Word salad Fund of Knowledge: Inadequate Attention and Concentration: Inadequate Memory: Impaired Mood: Angry (Mildly), Irritable (Somewhat today) Affect: Other (Decreased range slightly increased in intensity) Thought Process & Associations: Disorganized Thought Content: Other (Markedly disorganized) Hallucination Type: Other (Unable to assess secondary to thought disorder) Delusion Type: Other (Unable to assess secondary to thought disorder) Suicidal Ideation: No (No SI voiced) Suicidal Plan: No Suicidal Intention: No Homicidal Ideation: No (No HI voiced) Homicidal Plan: No Homicidal Intention: No Insight: Poor Judgment: Poor Assessment and Plan - Assessment (1) Dementia with behavioral disturbance Code(s): F03.91 - Unspecified dementia with behavioral disturbance Status: Acute - Plan Plan: Patient continues diffusely confused disoriented wandering and somewhat irritable please see medication adjustments above Justification for Continued Inpatient Stay: At this time patient would decompensate a place to a lower level of care Discharge Planning: To be determined Request Healthcare Surrogate/Guardian Advocate?: Yes (1) Dementia with behavioral disturbance Qualifiers: Dementia type: Alzheimer's disease Alzheimer's disease onset: early-onset Qualified Code(s): G30.0 - Alzheimer's disease with early onset; F02.81 - Dementia in other diseases classified elsewhere with behavioral disturbance
[2018-04-20] MEDS: QUEtiapine 25 MG Tablet PO SCH (12:45)
[2018-04-21] MEDS: QUEtiapine 100 MG Tablet PO SCH ×2 (09:44→17:13)
[2018-04-21] MEDS: QUEtiapine 25 MG Tablet PO SCH (12:37)
--- NOTE | 2018-04-21 13:37 | P.PNPSY ---
Subjective Remarks: Reviewed electronic medical records and discussed case with staff. Follow-up was conducted in the day room with SHELTON Bobby present. Noted that patient's medication was recently adjusted. His nurse reports that he has been seclusive and needs a lot of help with his ADLs. He has had no behaviors. When asked how he is feeling the patient states "good". Beyond that I can get no information from him as he just smiles and laughs inappropriately throughout the interview. Mental Status Examination Appearance: Disheveled Consciousness: Alert Orientation: Person (Disoriented) Motor Activity: Normal gait Speech: Other (Rambling) Language: Word salad Fund of Knowledge: Inadequate Attention and Concentration: Inadequate Memory: Impaired Mood: Angry (Mildly), Irritable (Somewhat today) Affect: Other (Decreased range slightly increased in intensity) Thought Process & Associations: Disorganized Thought Content: Other (Markedly disorganized) Hallucination Type: Other (Unable to assess secondary to thought disorder) Delusion Type: Other (Unable to assess secondary to thought disorder) Suicidal Ideation: No (No SI voiced) Suicidal Plan: No Suicidal Intention: No Homicidal Ideation: No (No HI voiced) Homicidal Plan: No Homicidal Intention: No Insight: Poor Judgment: Poor Assessment and Plan - Assessment (1) Dementia with behavioral problem Code(s): F03.91 - Unspecified dementia with behavioral disturbance Status: Acute - Plan Plan: Patient will be reevaluated by the attending psychiatrist. Continue with current treatment plan. Justification for Continued Inpatient Stay: Moving this patient to a less restrictive environment would likely result in decompensation. Request Healthcare Surrogate/Guardian Advocate?: Yes
--- NOTE | 2018-04-22 09:07 | P.PNPSY ---
Subjective Remarks: Reviewed electronic record and reviewed with nursing staff. Rounded with SHELTON Bobby. Patient avoids eye contact, does not verbally respond to questions. Will occasionally nod his head to questions. Need alot of help with ADLS. Nursing report that it takes a while to get him to take his medications, but he is medication compliant. No behavioral concerns. Review of Systems All other systems reviewed negative except as stated in HPI Mental Status Examination Appearance: Disheveled Consciousness: Alert Orientation: Person (Disoriented) Motor Activity: Normal gait Speech: Other (Rambling) Language: Word salad Fund of Knowledge: Inadequate Attention and Concentration: Inadequate Memory: Impaired Mood: Angry (Mildly), Irritable (Somewhat today) Affect: Other (Decreased range slightly increased in intensity) Thought Process & Associations: Disorganized Thought Content: Other (Markedly disorganized) Hallucination Type: Other (Unable to assess secondary to thought disorder) Delusion Type: Other (Unable to assess secondary to thought disorder) Suicidal Ideation: No (No SI voiced) Suicidal Plan: No Suicidal Intention: No Homicidal Ideation: No (No HI voiced) Homicidal Plan: No Homicidal Intention: No Insight: Poor Judgment: Poor Assessment and Plan - Assessment (1) Dementia with behavioral disturbance Code(s): F03.91 - Unspecified dementia with behavioral disturbance Status: Acute - Plan Plan: Patient will be reevaluated by the attending psychiatrist. Continue with current treatment plan. Justification for Continued Inpatient Stay: Moving patient to a less restrictive environment may result in his decompensation. Request Healthcare Surrogate/Guardian Advocate?: Yes (1) Dementia with behavioral disturbance Qualifiers: Dementia type: Alzheimer's disease Alzheimer's disease onset: early-onset Qualified Code(s): G30.0 - Alzheimer's disease with early onset; F02.81 - Dementia in other diseases classified elsewhere with behavioral disturbance
[2018-04-22] MEDS: QUEtiapine 100 MG Tablet PO SCH ×2 (10:02→17:13)
[2018-04-22] MEDS: QUEtiapine 25 MG Tablet PO SCH (14:06)
[2018-04-23] MEDS: QUEtiapine 100 MG Tablet PO SCH ×2 (08:05→17:00)
--- NOTE | 2018-04-23 10:10 | P.TTN ---
- Patient Problems Problems: 1. Discharge planning 2. Medication compliance 3. Knowledge deficit 4. Lack of coping skills - Progress Toward Goals Provider Present: Dr. Tha Pimentel Provider Input: 04/23: Pt is approved for return to [facility] ([facility]): Ratna, counselor to f/u with facility to come to assess pt for readmission clearance based their criteria. Pt may be d/c today 04/23. 04/18/18: pt has required recent ETO, medications currently being titrated as pt has not presented with consistent stabilized behaviors. Pt is accepted to [facility] , and will return when stabilized, per counselorRatna. Group Spec/RT/OT/COLE Present: John Love OT Group Spec/RT/OT/COLE Input: 04/23/18: Pt continues to be unable to tolerate groups. Pt is unable to tolerate group activities. - Discharge Plan 04/23: Pt is approved for return to [facility] ([facility]): darien Segundoor to f/u with facility to come to assess pt for readmission clearance based their criteria. Pt may be d/c today 04/23. 04/18/18: Pt is accepted to [facility], and will return when stabilized, per darienorRatna. - Documentation Teaching Recipient: Patient
--- NOTE | 2018-04-23 11:10 | P.PNPSY ---
Subjective Remarks: Patient is seen in the reyes with nurse Riley, medical student after of. Chart reviewed. Patient compliant medication. Patient continues diffusely confused disoriented somewhat superficial silly and then doubly childlike of poor boundaries noted Review of Systems All other systems reviewed negative except as stated in HPI Mental Status Examination Appearance: Disheveled Consciousness: Alert Orientation: Person (Disoriented) Motor Activity: Normal gait Speech: Other (Rambling) Language: Word salad Fund of Knowledge: Inadequate Attention and Concentration: Inadequate Memory: Impaired Mood: Angry (Calmer today) Affect: Other (Decreased range slightly increased in intensity) Thought Process & Associations: Disorganized Thought Content: Other (Markedly disorganized) Hallucination Type: Other (Unable to assess secondary to thought disorder) Delusion Type: Other (Unable to assess secondary to thought disorder) Suicidal Ideation: No (No SI voiced) Suicidal Plan: No Suicidal Intention: No Homicidal Ideation: No (No HI voiced) Homicidal Plan: No Homicidal Intention: No Insight: Poor Judgment: Poor Assessment and Plan - Assessment (1) Dementia with behavioral disturbance Code(s): F03.91 - Unspecified dementia with behavioral disturbance Status: Acute - Plan Plan: Patient remains confused demented behaviors, somewhat today continue to address placement issues Justification for Continued Inpatient Stay: At this time patient decompensated placed on lower level of care Discharge Planning: Continue to work on placement issues Request Healthcare Surrogate/Guardian Advocate?: Yes (1) Dementia with behavioral disturbance Qualifiers: Dementia type: Alzheimer's disease Alzheimer's disease onset: early-onset Qualified Code(s): G30.0 - Alzheimer's disease with early onset; F02.81 - Dementia in other diseases classified elsewhere with behavioral disturbance
[2018-04-23] MEDS: QUEtiapine 25 MG Tablet PO SCH (12:48)
[2018-04-23 16:09] VITALS: RESP 16
[2018-04-24 04:17] VITALS: TEMP 97.8
--- NOTE | 2018-04-24 09:05 | P.DSPSY ---
Psychiatry Discharge Summary Inpatient Psychiatric care?: Yes Advance Directives: Yes Mental Health Advance Directive: No Health Care Proxy: No - Admission Admission Date: April 11, 2018 17:56 - Admission Diagnosis (1) Dementia with behavioral problem Code(s): F03.91 - Unspecified dementia with behavioral disturbance (2) Major neurocognitive disorder due to Alzheimer's disease, possible Code(s): G30.9 - Alzheimer's disease, unspecified; F02.80 - Dementia in other diseases classified elsewhere without behavioral disturbance (3) Dementia with behavioral disturbance Code(s): F03.91 - Unspecified dementia with behavioral disturbance Brief History: Patient is a 67-year-old white male with a history of dementia comes here under [place] act from the [place] [facility] signed by Aditi PARIS dated 2017 at 12:30 PM that document reviewed and agreed with essentially states altered mental status rule out delirium Alzheimer's disease PTSD chronic also stating that the presents to the clinic with his spouse and caregiver reports that he has been more aggressive verbally and physically towards others over the past week the 's states he is hitting and punching himself in the head hallucinating and talking to people that are not there the patient is trying to jump out of the car into traffic states she is wandering at night and attempting to leave the house the was observed to be agitated hostile and screaming at his the states "his is not his but his girlfriend". Patient seen and screened in the ED urine toxicology negative blood alcohol level negative. At the present time patient sitting quietly in the dayroom is diffusely disoriented in all 4 spheres only recognizes his name. Though at the present time he is showing no behavioral problems. He vaguely acknowledges having memory problems. He does deny any voices in his head and he does deny any suicidality or thoughts of harming anyone. At this time patient does meet criteria for further involuntary inpatient psychiatric hospitalization of the Huerta act I will do first opinion request second opinion. I feel he does not have capacity we will ask for health care surrogate and guardian advocate. We will attempt to reach patient' s to get further information and see if she be willing to be healthcare surrogate. We will have hospitalist consult with us also. We will continue his medications per the med reconciliation. I have also finished the initial inpatient psychiatric admission template. We will continue him on the alcohol that was noted on the med reconciliation Tobacco Use In Past 30 Days: No How Often Do You Have a Drink Containing Alcohol: Unable to Obtain Hospital Course: Patient's hospital course was overall uneventful, though he did show some difficulties with personal boundaries space some inappropriate touching with incongruent affect related to childlike superficial behaviors, at times of some inappropriate touching also. He had some brief episodes of irritability and exit seeking. However he shown compliance with his medication. The exit seeking behaviors have been markedly diminished his behaviors have decreased in their intensity frequency and duration. At this time I feel patient has reached maximum benefit of this hospitalization. Patient has been accepted at [facility] tomorrow morning. Thus patient will be discharged tomorrow to the facility with Rx times 1 month follow-up services through that facility - Discharge Discharge Date: 04/25/18 - Discharge Diagnosis (1) Dementia with behavioral disturbance Diagnosis: Principal Code(s): F03.91 - Unspecified dementia with behavioral disturbance Status: Acute (2) Major neurocognitive disorder due to Alzheimer's disease, possible Code(s): G30.9 - Alzheimer's disease, unspecified; F02.80 - Dementia in other diseases classified elsewhere without behavioral disturbance Status: Acute Discharge Disposition: Assisted Living Facility ([facility] - Discharge Instructions Discharge Diet: Regular Diet Activities You Can Perform: Regular- No Restrictions - Discharge Time > 30 minutes Mental Status Examination Appearance: Disheveled Consciousness: Alert Orientation: Person (Disoriented) Motor Activity: Normal gait Speech: Other (Rambling) Language: Word salad Fund of Knowledge: Inadequate Attention and Concentration: Inadequate Memory: Impaired Mood: Angry (Calmer today) Affect: Other (Decreased range slightly increased in intensity) Thought Process & Associations: Disorganized Thought Content: Other (Markedly disorganized) Hallucination Type: Other (Unable to assess secondary to thought disorder) Delusion Type: Other (Unable to assess secondary to thought disorder) Suicidal Ideation: No (No SI voiced) Suicidal Plan: No Suicidal Intention: No Homicidal Ideation: No (No HI voiced) Homicidal Plan: No Homicidal Intention: No Insight: Poor Judgment: Poor Discharge/Advance Care Plan - Results Vital Signs: Last Vital Signs Temp 97.8 F 04/24/18 04:12 Pulse 63 04/24/18 04:12 Resp 16 04/24/18 04:12 BP 101/58 L 04/24/18 04:12 Pulse Ox 99 04/24/18 04:12 Lab Results: Laboratory Results Hemoglobin A1c 5.3 % (4.3-6.0) 04/12/18 06:05 Triglycerides 52 mg/dL (42-150) 04/12/18 06:05 Cholesterol 180 mg/dL (120-200) 04/12/18 06:05 LDL Cholesterol, Calc 106 mg/dL (0-99) H 04/12/18 06:05 HDL Cholesterol 63.7 mg/dL (40.0-60.0) H 04/12/18 06:05 TSH 1.080 uIU/mL (0.358-3.740) 04/11/18 14:30 Free T4 1.00 ng/dL (0.76-1.46) 04/12/18 06:05 Urine Culture Comments Culture not ind 04/11/18 16:45 Summary of Procedures: None done Pending Results: None - Medications Number of antipsychotic medications at discharge: 1 - Discharge Care Plan Goals to Promote Your Health: * To prevent worsening of your condition and complications * To maintain your health at the optimal level Directions to Meet Your Goals: Take your medications as prescribed Follow your dietary instruction Follow activity as directed Keep your appointments as scheduled Take your immunizations and boosters as scheduled If your symptoms worsen call your PCP, if no PCP go to Urgent Care Center or Emergency Room For 26/12 questions related to your inpatient stay or results of tests pending at discharge, please contact Dr. Tesfaye Pimentel MD at Smoking is Dangerous to Your Health. Avoid second hand smoking (1) Dementia with behavioral problem Qualifiers: Alzheimer's disease onset: early-onset (3) Dementia with behavioral disturbance Qualifiers: Dementia type: Alzheimer's disease Alzheimer's disease onset: early-onset Qualified Code(s): G30.0 - Alzheimer's disease with early onset; F02.81 - Dementia in other diseases classified elsewhere with behavioral disturbance (1) Dementia with behavioral disturbance Qualifiers: Dementia type: Alzheimer's disease Alzheimer's disease onset: early-onset Qualified Code(s): G30.0 - Alzheimer's disease with early onset; F02.81 - Dementia in other diseases classified elsewhere with behavioral disturbance
[2018-04-24] MEDS: QUEtiapine 100 MG Tablet PO SCH ×2 (09:34→18:28)
[2018-04-24] MEDS: QUEtiapine 25 MG Tablet PO SCH (14:10)
[2018-04-24 18:13] VITALS: BP 141/85; PULSE 75; O2SAT 100
[2018-04-25] MEDS: QUEtiapine 100 MG Tablet PO SCH (09:06)
[2018-04-25] MEDS: QUEtiapine 25 MG Tablet PO SCH (14:13)
== END 2018-04-25 14:25 ==
LOC: NEDAMB 13:56 → NEDA 17:56 → H250 19:49
PROVIDERS: ADMIT Psychiatry & Neurology Psychiatry; ATTEND Psychiatry & Neurology Psychiatry